=== PATIENT | female | born 1970 | race American Indian/Alaskan Native ===

== ENCOUNTER 2017-05-15 16:31 | Emergency (ER) | payer BC ==
[2017-05-15 16:41] VITALS: BP 109/54; PULSE 58; RESP 20; TEMP 98
[2017-05-15] MEDS ORDERED: HYDROcodone/APAP 10-325MG 1 EACH TAB PO ONE (17:29)
[2017-05-15] MEDS ORDERED: ORPHENADRINE 30 MG/ML 2 ML VIAL IM STA (17:29)
[2017-05-15] MEDS ORDERED: KETOROLAC 60 MG/2 ML VIAL IM STA (17:29)
--- NOTE | 2017-05-15 17:32 | ED ---
Back Pain HPI - General Chief Complaint: Back Pain/Injury Stated Complaint: Back Pain Time Seen by Provider: 05/15/17 17:00 Source: patient, RN notes reviewed, old records reviewed Limitations: no limitations - History of Present Illness Initial Comments: This is a 47 year old female with CC of lower back pain radiating down right leg. She denies any falls, or saddle anesthesia. She reports that she has had pain like this occasionally before. Patient states she has been taking motrin with little relief for pain. - Related Data Previous Rx's Medication Instructions Recorded Diazepam [Valium] 5 mg PO BID #4 tab 08/07/16 HYDROcodone/APAP 5-325MG [[place] 1 tab PO Q4HR PRN #12 tab 08/07/16 5-325] Cyclobenzaprine [Flexeril] 10 mg PO TID #15 tab 05/15/17 Dexamethasone 0.75 mg PO DAILY #12 tab 05/15/17 HYDROcodone/APAP 10-325MG [[place] 1 tab PO Q8H PRN #15 tab 05/15/17 10-325] Allergies Allergy/AdvReac Type Severity Reaction Status Date / Time codeine Allergy Unknown Verified 05/15/17 16:41 Review of Systems ROS Statement: Those systems with pertinent positive or pertinent negative responses have been documented in the HPI. ROS Other: All systems not noted in ROS Statement are negative. Constitutional: Denies: fever, chills Eyes: Denies: eye pain ENT: Denies: ear pain Respiratory: Denies: cough, dyspnea Cardiovascular: Denies: chest pain Endocrine: Reports: fatigue Gastrointestinal: Denies: abdominal pain, nausea Genitourinary: Denies: urgency Musculoskeletal: Reports: back pain Skin: Denies: rash, lesions Neurological: Denies: headache, weakness Psychiatric: Denies: anxiety, depression Hematological/Lymphatic: Denies: easy bleeding Past Medical History Past Medical History: No Reported History Additional Past Medical History / Comment(s): migraine, back pain History of Any Multi-Drug Resistant Organisms: None Reported Past Surgical History: Cholecystectomy, Hernia Repair Past Psychological History: No Psychological Hx Reported Smoking Status: Current some day smoker Past Alcohol Use History: None Reported Past Drug Use History: None Reported General Exam - General Exam Comments Initial Comments: Well appearing 47 year old female. Limitations: no limitations General appearance: alert, in no apparent distress Head exam: Present: atraumatic, normocephalic, normal inspection Eye exam: Present: normal appearance, PERRL, EOMI. Absent: scleral icterus, conjunctival injection, periorbital swelling ENT exam: Present: normal exam, mucous membranes moist Neck exam: Present: normal inspection. Absent: tenderness, meningismus, lymphadenopathy Respiratory exam: Present: normal lung sounds bilaterally. Absent: respiratory distress, wheezes, rales, rhonchi, stridor Cardiovascular Exam: Present: regular rate, normal rhythm, normal heart sounds. Absent: systolic murmur, diastolic murmur, rubs, gallop, clicks GI/Abdominal exam: Present: soft, normal bowel sounds. Absent: distended, tenderness, guarding, rebound, rigid Extremities exam: Present: normal inspection, full ROM, normal capillary refill. Absent: tenderness, pedal edema, joint swelling, calf tenderness Back exam: Present: normal inspection, tenderness (right lumbar and sciatic notch tenderness. ) Neurological exam: Present: alert, oriented X3, CN II-XII intact Psychiatric exam: Present: normal affect, normal mood Skin exam: Present: warm, dry, intact, normal color. Absent: rash Course Vital Signs 05/15/17 16:40 Temperature 98 F Pulse Rate 58 L Respiratory 20 Rate Blood Pressure 109/54 O2 Sat by Pulse 100 Oximetry Medical Decision Making - Medical Decision Making This is a 47 year old female with CC of lower back pain radiating down right leg. She denies any falls, or saddle anesthesia. She reports that she has had pain like this occasionally before. Patient states she has been taking motrin with little relief for pain. Pt given IM norflex, nad toradol. Pt has right lumbar spinal tenderness, positive straight leg test. Patient given Rx for dexamethasone, flexeril, and norco.. Discussed close follow up with PCP. Disposition Clinical Impression: Back pain with right-sided sciatica Disposition: HOME SELF-CARE Condition: Good Instructions: Acute Low Back Pain (ED) Additional Instructions: Patient advised to follow-up with a primary care physician. Take the medications as directed. Patient also needs to do heat and ice and also do massage over the area. Return to the emergency department if any alarming signs or symptoms occur. Prescriptions: Cyclobenzaprine [Flexeril] 10 mg PO TID #15 tab Dexamethasone 0.75 mg PO DAILY #12 tab HYDROcodone/APAP 10-325MG [[place] 10-325] 1 tab PO Q8H PRN #15 tab PRN Reason: Pain Referrals: None,Stated [Primary Care Provider] - 1-2 days Katia Childers MD [STAFF PHYSICIAN] - 1-2 days Time of Disposition: 17:30
--- NOTE | 2017-05-19 03:08 | CDI ---
Documentation Clarification OP Dear ANIL Coles: Please do addendum to ED report for HPI and physical exam. Thank you, Sabrina Moy [employer]pering Kil[employer] Tender If you have any question, Please contact manager science at [phone] [facility]
== END 2017-05-15 17:50 | disposition home or self-care (01) ==
LOC: EC 16:31
DX: M54.41 Lumbago with sciatica, right side (principal); F17.200 Nicotine dependence, unspecified, uncomplicated; Z88.5 Allergy status to narcotic agent
CPT/HCPCS: 99284; 96372 ×2; J2360; J1885

== ENCOUNTER 2017-11-08 17:56 | Emergency (ER) | payer BC ==
[2017-11-08 18:34] VITALS: BP 150/69; PULSE 63; RESP 18; TEMP 97
[2017-11-08] MEDS ORDERED: ORPHENADRINE 30 MG/ML 2 ML VIAL IM STA (18:50)
--- NOTE | 2017-11-08 18:51 | ED ---
Fall HPI - General Chief Complaint: Fall Stated Complaint: Fell/back pain Time Seen by Provider: 11/08/17 18:30 Source: patient, RN notes reviewed, old records reviewed Mode of arrival: ambulatory - History of Present Illness Initial Comments: 47-year-old female presents today chief complaint of lower back pain. She reports that she slipped and fell. Patient states that she has pain radiating down her leg. She states that she is here for her daughter's . She reports she has been induced. She reports she was running with her bags and fell. She states that she's had no saddle anesthesias. Denies any other symptoms at this time.Patient denies any recent fever, chills, shortness of breath, chest pain, back pain, abdominal pain, nausea vomiting, numbness or tingling, dysuria or hematuria, constipation or diarrhea, headaches or visual changes, or any other current symptoms - Related Data Previous Rx's Medication Instructions Recorded Diazepam [Valium] 5 mg PO BID #4 tab 08/07/16 HYDROcodone/APAP 5-325MG [[place] 1 tab PO Q4HR PRN #12 tab 08/07/16 5-325] Cyclobenzaprine [Flexeril] 10 mg PO TID #15 tab 05/15/17 Dexamethasone 0.75 mg PO DAILY #12 tab 05/15/17 HYDROcodone/APAP 10-325MG [[place] 1 tab PO Q8H PRN #15 tab 05/15/17 10-325] Cyclobenzaprine [Flexeril] 10 mg PO TID #12 tab 11/08/17 Dexamethasone 0.75 mg PO DAILY #12 tab 11/08/17 HYDROcodone/APAP 5-325MG [[place] 1 - 2 tab PO Q6HR PRN #15 tab 11/08/17 5-325] Allergies Allergy/AdvReac Type Severity Reaction Status Date / Time codeine Allergy Unknown Verified 11/08/17 18:34 Review of Systems ROS Statement: Those systems with pertinent positive or pertinent negative responses have been documented in the HPI. ROS Other: All systems not noted in ROS Statement are negative. Past Medical History Past Medical History: No Reported History Additional Past Medical History / Comment(s): migraine, back pain History of Any Multi-Drug Resistant Organisms: None Reported Past Surgical History: Cholecystectomy, Hernia Repair Past Psychological History: No Psychological Hx Reported Smoking Status: Current some day smoker Past Alcohol Use History: None Reported Past Drug Use History: None Reported General Exam - General Exam Comments Initial Comments: 47-year-old female. No distress. Limitations: no limitations General appearance: alert, in no apparent distress Head exam: Present: atraumatic, normocephalic, normal inspection Eye exam: Present: normal appearance, PERRL, EOMI. Absent: scleral icterus, conjunctival injection, periorbital swelling ENT exam: Present: normal exam, mucous membranes moist Neck exam: Present: normal inspection. Absent: tenderness, meningismus, lymphadenopathy Respiratory exam: Present: normal lung sounds bilaterally. Absent: respiratory distress, wheezes, rales, rhonchi, stridor Cardiovascular Exam: Present: regular rate, normal rhythm, normal heart sounds. Absent: systolic murmur, diastolic murmur, rubs, gallop, clicks GI/Abdominal exam: Present: soft, normal bowel sounds. Absent: distended, tenderness, guarding, rebound, rigid Extremities exam: Present: normal inspection, full ROM, normal capillary refill. Absent: tenderness, pedal edema, joint swelling, calf tenderness Back exam: Present: normal inspection, vertebral tenderness (Lumbar vertebral tenderness.) Neurological exam: Present: alert, oriented X3, CN II-XII intact Psychiatric exam: Present: normal affect, normal mood Course Vital Signs 11/08/17 18:32 Temperature 97.0 F L Pulse Rate 63 Respiratory 18 Rate Blood Pressure 150/69 O2 Sat by Pulse 100 Oximetry Medical Decision Making - Medical Decision Making 47-year-old female presents today chief complaint of lower back pain. She reports that she slipped and fell. Patient states that she has pain radiating down her leg. She states that she is here for her daughter's . She reports she has been induced. She reports she was running with her bags and fell. She states that she's had no saddle anesthesias. Patient given x-rays of the lumbar spine and pelvis. There are negative for any acute or maladies. There is evidence of some degenerative disc disease noted. Patient informed of these results. Will be discharged with anti-inflammatory medication. Discussed following up with PCP. Return parameters were discussed. - Radiology Data Radiology results: report reviewed Pelvis x-ray was reviewed and negative for any acute process. Lumbar spine x- rays negative for any significant disease. Disposition Clinical Impression: Fall, Back pain Disposition: HOME SELF-CARE Condition: Good Instructions: Low Back Strain (ED) Additional Instructions: Patient has a follow-up with primary care physician. Take medications as prescribed. Return to the emergency department if any alarming signs or symptoms occur. Prescriptions: Cyclobenzaprine [Flexeril] 10 mg PO TID #12 tab Dexamethasone 0.75 mg PO DAILY #12 tab HYDROcodone/APAP 5-325MG [[place] 5-325] 1 - 2 tab PO Q6HR PRN #15 tab PRN Reason: Pain Referrals: Nahomi Pantoja MD [Primary Care Provider] - 1-2 days Time of Disposition: 19:20
--- NOTE | 2017-11-08 19:12 | XR ---
EXAMINATION TYPE: XR pelvis AP view DATE OF EXAM: 11/08/2017 CLINICAL HISTORY: Fall injury with pain. TECHNIQUE: A single AP view of the pelvis is obtained. COMPARISON: Right hip x-ray September 24, 2014 FINDINGS: There is no acute fracture/dislocation evident in the pelvis. The hip and sacroiliac join ts appear symmetric and unremarkable. Scattered pelvic phleboliths are present. IMPRESSION: There is no acute fracture or dislocation in the pelvis.
--- NOTE | 2017-11-08 19:15 | XR ---
EXAMINATION TYPE: XR lumbar spine 2 or 3V DATE OF EXAM: 11/08/2017 CLINICAL HISTORY: Back pain after fall injury. TECHNIQUE: Frontal and lateral images of the lumbar spine are obtained. COMPARISON: Prior lumbar spine x-ray September 24, 2014 FINDINGS: There are 5 lumbar type vertebral bodies identified. The lumbar spine redemonstrates levo convex scoliosis centered at L3 level without evidence of acute fracture or dislocation. Spine is str aightened on lateral images. Vertebral body heights are within normal limits. There is moderate disc space narrowing and endplate sclerosis with mild to moderate anterior spurring L3-L4 level redemonstr ated. There is mild disc space narrowing L4-L5 level redemonstrated. There is moderate disc space don rowing with vacuum disc phenomenon L5-S1 level redemonstrated. Cholecystectomy clips in the overlying soft tissue are again seen. IMPRESSION: No acute fracture or dislocation is seen in the lumbar spine. No significant change from prior.
== END 2017-11-08 19:28 | disposition home or self-care (01) ==
LOC: EC 17:56
DX: M54.5 Low back pain (principal); F17.200 Nicotine dependence, unspecified, uncomplicated; Z88.5 Allergy status to narcotic agent; W01.0XXA Fall on same level from slipping, tripping and stumbling without subsequent striking against object, initial encounter; Y92.59 Other trade areas as the place of occurrence of the external cause; Y93.02 Activity, running
CPT/HCPCS: 72100; 72170; 99284; 96372; J2360

== ENCOUNTER → 2019-06-14 | Outpatient (CLI) | payer BC ==
--- NOTE | 2019-06-14 12:22 | MM ---
Reason for exam: screening (asymptomatic). Baseline mammogram. History: Patient is postmenopausal. Physical Findings: Nurse did not find any significant physical abnormalities on exam. MG Screening Mammo w CAD Bilateral CC and MLO view(s) were taken. There are scattered fibroglandular densities. No suspicious abnormality. These results were verbally communicated with the patient and result sheet given to the patient on 06/14/19. ASSESSMENT: Negative, BI-RAD 1 RECOMMENDATION: Routine screening mammogram of both breasts in 1 year.
== END | disposition home or self-care (01) ==
LOC: RADMAMWWP 10:53
PROVIDERS: ATTEND Family Medicine
DX: Z12.31 Encounter for screening mammogram for malignant neoplasm of breast (principal)
CPT/HCPCS: 77067

== ENCOUNTER 2021-09-22 11:01 | Inpatient (IN) | payer BC ==
[2021-09-22] MEDS ORDERED: DEXAMETHASONE SOD PHOSPHATE 10 MG/ML 1 ML VIAL IV STA (12:18)
[2021-09-22] MEDS ORDERED: ACETAMINOPHEN TAB 500 MG TAB PO STA (12:34)
--- NOTE | 2021-09-22 12:35 | ED ---
General Adult HPI - General Chief complaint: Shortness of Breath Stated complaint: SOB/Dizziness Time Seen by Provider: 09/22/21 12:01 Source: patient Mode of arrival: wheelchair - History of Present Illness Initial comments: Dictation was produced using [employer] dictation software. please excuse any grammatical, word or spelling errors. Chief Complaint: Patient is a 51-year-old female she has past medical history of depression presents emergency department for worsening symptoms of COVID-19 History of Present Illness: Patient is a 51-year-old female she denies any significant comorbidities. She states she's been symptomatically Covid since Tuesday. Over the last 4 days she's had worsening symptoms of fever, cough, myalgias, shortness of breath and dizziness. Patient does not know how she contracted it. She tested positive recently. She denies any chest pain The ROS documented in this emergency department record has been reviewed and confirmed by me. Those systems with pertinent positive or negative responses have been documented in the HPI. All other systems are other negative and/or noncontributory. PHYSICAL EXAM: General Impression: Alert and oriented x3, malaise, feels warm HEENT: Normocephalic atraumatic, extra-ocular movements intact, pupils equal and reactive to light bilaterally, mucous membranes moist. Cardiovascular: Heart regular rate and rhythm Chest: Able to complete full sentences, no retractions, no tachypnea Abdomen: abdomen soft, non-tender, non-distended, no organomegaly Musculoskeletal: Pulses present and equal in all extremities, no peripheral edema Motor: no focal deficits noted Neurological: CN II-XII grossly intact, no focal motor or sensory deficits noted Skin: Intact with no visualized rashes Psych: Normal affect and mood ED course: 51-year-old female presents emergency Department with Covid symptoms. She's been symptomatic for the last 4 days. Vital signs upon arrival shows 85% on room air, rest of vital signs within acceptable limits. Patient placed on 4 L nasal cannula. EKG interpretation: Ventricular rate 86, sinus rhythm,. Interval 144, QRS 80, QTc 457. No MT prolongation, no QTC prolongation, no ST or T-wave changes noted. Overall, this EKG is unremarkable Chest x-ray shows ARDS. Laboratory evaluation shows white count 12.5, CBC unremarkable. Coag panel is negative. D-dimer slightly elevated at 0.78. Metabolic panel is negative. CT angio of the chest ordered for elevated d-dimer CT angios the chest shows no pulmonary embolism. There is atypical pneumonia. Given the patient has elevated white count there is concern for superimposed bacterial infection. Patient given azithromycin and ceftriaxone. Patient be admitted with pulmonary consult. - Related Data Home Medications Medication Instructions Recorded Confirmed Acetaminophen Tab [Tylenol Tab] 1,000 mg PO BID 09/22/21 09/22/21 Baclofen [Lioresal] 10 mg PO TID PRN 09/22/21 09/22/21 Diclofenac Sodium [Voltaren] 75 mg PO BID 09/22/21 09/22/21 Gabapentin [Neurontin] 300 mg PO BID 09/22/21 09/22/21 Meloxicam 7.5 mg PO DAILY 09/22/21 09/22/21 Sertraline [Zoloft] 100 mg PO DAILY 09/22/21 09/22/21 Allergies Allergy/AdvReac Type Severity Reaction Status Date / Time codeine Allergy Unknown Verified 09/22/21 13:25 Review of Systems ROS Statement: Those systems with pertinent positive or pertinent negative responses have been documented in the HPI. ROS Other: All systems not noted in ROS Statement are negative. Past Medical History Past Medical History: No Reported History Additional Past Medical History / Comment(s): migraine, back pain History of Any Multi-Drug Resistant Organisms: None Reported Past Surgical History: Cholecystectomy, Hernia Repair Past Psychological History: No Psychological Hx Reported Smoking Status: Never smoker Past Alcohol Use History: None Reported Past Drug Use History: None Reported Course Vital Signs 09/22/21 09/22/21 09/22/21 11:20 13:20 13:26 Temperature 98.9 F 98.2 F Pulse Rate 95 90 Respiratory 22 24 Rate Blood Pressure 100/69 123/83 O2 Sat by Pulse 85 L 90 L 91 L Oximetry 09/22/21 09/22/21 14:31 15:00 Temperature Pulse Rate 68 Respiratory 22 18 Rate Blood Pressure 117/78 O2 Sat by Pulse 93 L Oximetry Medical Decision Making - Lab Data Result diagrams: 09/22/21 13:11 09/22/21 13:11 Lab Results 09/22/21 09/22/21 09/22/21 Range/Units 13:11 13:11 13:11 WBC 12.5 H (3.8-10.6) k/uL RBC 4.63 (3.80-5.40) m/uL Hgb 13.8 (11.4-16.0) gm/dL Hct 42.3 (34.0-46.0) % MCV 91.4 (80.0-100.0) fL MCH 29.8 (25.0-35.0) pg MCHC 32.6 (31.0-37.0) g/dL RDW 12.3 (11.5-15.5) % Plt Count 295 (150-450) k/uL MPV 9.1 Neutrophils % 91 % Lymphocytes % 6 % Monocytes % 3 % Eosinophils % 0 % Basophils % 0 % Neutrophils # 11.3 H (1.3-7.7) k/uL Lymphocytes # 0.7 L (1.0-4.8) k/uL Monocytes # 0.4 (0-1.0) k/uL Eosinophils # 0.0 (0-0.7) k/uL Basophils # 0.0 (0-0.2) k/uL PT 10.7 (9.0-12.0) sec INR 1.0 (<1.2) APTT 26.4 (22.0-30.0) sec D-Dimer 0.78 H (<0.60) mg/L FEU Sodium 138 (137-145) mmol/L Potassium 3.8 (3.5-5.1) mmol/L Chloride 102 (98-107) mmol/L Carbon Dioxide 24 (22-30) mmol/L Anion Gap 12 mmol/L BUN 15 (7-17) mg/dL Creatinine 0.50 L (0.52-1.04) mg/dL Est GFR (CKD-EPI)AfAm >90 (>60 ml/min/1.73 sqM) Est GFR (CKD-EPI)NonAf >90 (>60 ml/min/1.73 sqM) Glucose 107 H (74-99) mg/dL Calcium 8.8 (8.4-10.2) mg/dL Total Bilirubin 0.6 (0.2-1.3) mg/dL AST 80 H (14-36) U/L ALT 70 H (4-34) U/L Alkaline Phosphatase 111 (38-126) U/L Troponin I (0.000-0.034) ng/mL NT-Pro-B Natriuret Pep pg/mL Total Protein 6.9 (6.3-8.2) g/dL Albumin 3.5 (3.5-5.0) g/dL 09/22/21 09/22/21 Range/Units 13:11 13:11 WBC (3.8-10.6) k/uL RBC (3.80-5.40) m/uL Hgb (11.4-16.0) gm/dL Hct (34.0-46.0) % MCV (80.0-100.0) fL MCH (25.0-35.0) pg MCHC (31.0-37.0) g/dL RDW (11.5-15.5) % Plt Count (150-450) k/uL MPV Neutrophils % % Lymphocytes % % Monocytes % % Eosinophils % % Basophils % % Neutrophils # (1.3-7.7) k/uL Lymphocytes # (1.0-4.8) k/uL Monocytes # (0-1.0) k/uL Eosinophils # (0-0.7) k/uL Basophils # (0-0.2) k/uL PT (9.0-12.0) sec INR (<1.2) APTT (22.0-30.0) sec D-Dimer (<0.60) mg/L FEU Sodium (137-145) mmol/L Potassium (3.5-5.1) mmol/L Chloride (98-107) mmol/L Carbon Dioxide (22-30) mmol/L Anion Gap mmol/L BUN (7-17) mg/dL Creatinine (0.52-1.04) mg/dL Est GFR (CKD-EPI)AfAm (>60 ml/min/1.73 sqM) Est GFR (CKD-EPI)NonAf (>60 ml/min/1.73 sqM) Glucose (74-99) mg/dL Calcium (8.4-10.2) mg/dL Total Bilirubin (0.2-1.3) mg/dL AST (14-36) U/L ALT (4-34) U/L Alkaline Phosphatase (38-126) U/L Troponin I <0.012 (0.000-0.034) ng/mL NT-Pro-B Natriuret Pep 127 pg/mL Total Protein (6.3-8.2) g/dL Albumin (3.5-5.0) g/dL Critical Care Time Critical Care Time: Yes Total Critical Care Time: 33 Disposition Clinical Impression: COVID-19 Disposition: ADMITTED IP TO THIS [facility] Condition: Critical Referrals: Lin Tejeda MD [Primary Care Provider] - 1-2 days
--- NOTE | 2021-09-22 13:05 | XR ---
EXAMINATION TYPE: XR chest 1V portable DATE OF EXAM: 09/22/2021 COMPARISON: 03/09/2011 HISTORY: Cough TECHNIQUE: Single frontal view of the chest is obtained. FINDINGS: There is diffuse mixed alveolar and interstitial airspace disease with no sizable pleural effusion or pneumothorax. Heart size normal. IMPRESSION: Diffuse widespread airspace disease correlate for diffuse pneumonia or ARDS.
[2021-09-22 13:47] LABS: ALT 70 U/L (4-34); AST 80 U/L (14-36); African American GFR (CKD) >90 (>60 ml/min/1.73 sqM); Albumin 3.5 g/dL (3.5-5.0); Alkaline Phosphatase 111 U/L (38-126); Anion Gap 12 mmol/L; Blood Urea Nitrogen 15 mg/dL (7-17); Calcium 8.8 mg/dL (8.4-10.2); Carbon Dioxide 24 mmol/L (22-30); Chloride 102 mmol/L (98-107); Glucose 107 mg/dL (74-99); Non-African American GFR(CKD) >90 (>60 ml/min/1.73 sqM); Potassium 3.8 mmol/L (3.5-5.1); Sodium 138 mmol/L (137-145); Total Bilirubin 0.6 mg/dL (0.2-1.3); Total Protein 6.9 g/dL (6.3-8.2)
[2021-09-22 13:53] LABS: Basophils % (A) 0 %; Eosinophils % (A) 0 %; HCT 42.3 % (34.0-46.0); HGB 13.8 gm/dL (11.4-16.0); Lymphocytes # (A) 0.7 k/uL (1.0-4.8); Lymphocytes % (A) 6 %; MCH 29.8 pg (25.0-35.0); MCHC 32.6 g/dL (31.0-37.0); MCV 91.4 fL (80.0-100.0); Mean Platelet Volume 9.1; Monocytes # (A) 0.4 k/uL (0-1.0); Monocytes % (A) 3 %; Neutrophils # (A) 11.3 k/uL (1.3-7.7); Neutrophils % (A) 91 %; Platelet Count 295 k/uL (150-450); RBC 4.63 m/uL (3.80-5.40); RDW 12.3 % (11.5-15.5); WBC 12.5 k/uL (3.8-10.6)
[2021-09-22 13:57] LABS: Partial Thromboplastin Time 26.4 sec (22.0-30.0); Prothrombin Time 10.7 sec (9.0-12.0)
[2021-09-22] MEDS ORDERED: NALOXONE 0.4 MG/ML 1 ML VIAL IV PRN (14:39)
[2021-09-22] MEDS ORDERED: ONDANSETRON 4 MG/2 ML VIAL IVP PRN (14:39)
[2021-09-22] MEDS ORDERED: SODIUM CHLORIDE 0.9% 1,000 ML IV SCH (14:45)
--- NOTE | 2021-09-22 15:04 | CT ---
CT CHEST FOR PULMONARY EMBOLISM. EXAMINATION TYPE: CT angio chest DATE OF EXAM: 09/22/2021 INDICATION: COVID CT DLP: 404.5 mGycm, Automated exposure control for dose reduction was used. CONTRAST: Patient injected with 100, wasted 36 ml mL of Isovue 370. COMPARISON: None TECHNIQUE: CT of the chest is performed on a spiral scan at 2 mm thick sections. Study is performed with intravenous contrast timed for evaluation for pulmonary embolism. This will limit additional po rtions of the evaluation. 3-D MIP images reconstructed by the technologist are reviewed on the compu ter in the coronal and sagittal planes. FINDINGS: No persistent filling defects are evident to suggest an acute pulmonary embolism. No mediastinal or hilar adenopathy enlarged by CT criteria is evident. The ascending aorta diameter at the level of the main pulmonary artery is 2.8 cm. The main pulmonary artery diameter at the bifur cation is 2.7 cm. There are diffuse groundglass opacities with patchy infiltrates throughout the bilateral lung carmona. Findings the suggestive for, although not diagnostic of, Covid pneumonia. Limited CT section through the upper abdomen are unremarkable. IMPRESSIONS: 1. No acute pulmonary embolism. 2. Atypical pneumonia.
[2021-09-22] MEDS ORDERED: cefTRIAXone IN SWFI 1,000 MG/10 ML SYRINGE IVP STA (15:14)
[2021-09-22] MEDS ORDERED: AZITHROMYCIN 500 MG in SODIUM CHLORIDE 0.9% 250 ML IVPB STA (15:14)
[2021-09-22] MEDS: ENOXAPARIN 40 MG/0.4 ML SYRINGE SQ SCH (15:57)
[2021-09-22] MEDS: ACETAMINOPHEN TAB 325 MG TAB PO PRN (19:55)
[2021-09-23] MEDS: ENOXAPARIN 40 MG/0.4 ML SYRINGE SQ SCH (09:51)
[2021-09-23] MEDS: DEXAMETHASONE SOD PHOSPHATE 10 MG/ML 1 ML VIAL IVP SCH (09:51)
[2021-09-23] MEDS: SERTRALINE 100 MG TAB PO SCH (09:51)
[2021-09-23] MEDS: MELOXICAM 7.5 MG TAB PO SCH (09:51)
[2021-09-23] MEDS: GABAPENTIN 300 MG CAP PO SCH ×2 (09:51→21:30)
--- NOTE | 2021-09-23 10:06 | P.CNPUL ---
History of Present Illness Consult date: 09/23/21 Reason for consult: dyspnea, cough, hypoxemia, abnormal CXR/CT Chief complaint: Dyspnea, cough History of present illness: This is a 51-year-old female patient without significant medical history who came into the emergency department for evaluation of worsening dyspnea, cough, and patient was diagnosed with COVID-19 at the health department on 09/21/2021. Patient developed symptoms since the day after Thanksgiving, and at this point she is 12 days out from a symptom onset. Initially she had fever and chills, which progressed to worsening cough, and shortness of breath. She believes she became infected at work, where COVID infection was going around. 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 Not get any monoclonal antibodies, did not get any outpatient treatment, chest x-ray in emergency department shows diffuse widespread airspace disease consistent with COVID-19 pneumonia, ARDS. Admission labs showed white blood cell count of 12.5, hemoglobin at 13.8, platelet count of 295, d-dimer of 0.78, INR of 1, electrolytes were within normal limits, B1 was 15 creatinine was 0.50, GFR is greater than 90, AST was elevated at 80, ALT was 70, troponin was less than 0.012, proBNP was 127. Patient denies any history of chronic lung disease, she is a nonsmoker, no history of hypertension or diabetes. Generally she is a healthy adult. CT angiogram of the chest showed no acute pulmonary embolism, and groundglass opacities, diffuse with patchy infiltrates throughout the bi lateral lung carmona. Patient was outside the window for Remdesivir, she was started on Decadron, prophylactic Lovenox, and COVID-19 vitamins. Review of Systems All systems: negative Constitutional: Reports fatigue, Reports fever, Reports weakness, Denies chills Eyes: denies blurred vision, denies pain Ears, nose, mouth and throat: Denies headache, Denies sore throat Cardiovascular: Denies chest pain, Denies shortness of breath Respiratory: Reports cough, Reports dyspnea Gastrointestinal: Reports diarrhea, Reports loss of appetite, Denies abdominal pain, Denies nausea, Denies vomiting Genitourinary: Denies dysuria, Denies hematuria Musculoskeletal: Denies myalgias Integumentary: Denies pruritus, Denies rash Neurological: Denies numbness, Denies weakness Psychiatric: Denies anxiety, Denies depression Endocrine: Denies fatigue, Denies weight change Past Medical History Past Medical History: No Reported History Additional Past Medical History / Comment(s): migraine, back pain History of Any Multi-Drug Resistant Organisms: None Reported Past Surgical History: Cholecystectomy, Hernia Repair Past Anesthesia/Blood Transfusion Reactions: No Reported Reaction Past Psychological History: No Psychological Hx Reported Smoking Status: Never smoker Past Alcohol Use History: None Reported Past Drug Use History: None Reported Medications and Allergies Home Medications Medication Instructions Recorded Confirmed Type Acetaminophen Tab [Tylenol Tab] 1,000 mg PO BID 09/22/21 09/22/21 History Baclofen [Lioresal] 10 mg PO TID PRN 09/22/21 09/22/21 History Diclofenac Sodium [Voltaren] 75 mg PO BID 09/22/21 09/22/21 History Gabapentin [Neurontin] 300 mg PO BID 09/22/21 09/22/21 History Meloxicam 7.5 mg PO DAILY 09/22/21 09/22/21 History Sertraline [Zoloft] 100 mg PO DAILY 09/22/21 09/22/21 History Allergies Allergy/AdvReac Type Severity Reaction Status Date / Time codeine Allergy Unknown Verified 09/22/21 13:25 Physical Exam Vitals: Vital Signs Temp Pulse Pulse Resp BP BP Pulse Ox 09/23/21 06:00 98.8 F 73 19 117/78 91 L 09/23/21 04:15 92 L 09/23/21 02:00 98.2 F 65 21 124/83 96 09/22/21 22:31 98.5 F 82 19 113/76 92 L 09/22/21 20:00 22 09/22/21 18:46 98.2 F 81 22 116/79 93 L 09/22/21 16:00 98.0 F 79 22 115/78 93 L 09/22/21 15:00 82 24 117/78 94 L 09/22/21 14:31 22 09/22/21 13:26 91 L 09/22/21 13:20 98.2 F 90 24 123/83 90 L 09/22/21 11:20 98.9 F 95 22 100/69 85 L Intake and Output 09/22/21 09/23/21 09/23/21 22:59 06:59 14:59 Intake Total 1100 Balance 1100 Intake: Oral 1100 Other: # Voids 2 1 Weight 90.718 kg GENERAL EXAM: Alert, pleasant, 61-year-old female, frequent cough, currently on 8 L of oxygen, mildly short of breath with conversation HEAD: Normocephalic/atraumatic. EYES: Normal reaction of pupils, equal size. Conjunctiva pink, sclera white. NOSE: Clear with pink turbinates. THROAT: No erythema or exudates. NECK: No masses, no JVD, no thyroid enlargement, no adenopathy. CHEST: No chest wall deformity. Symmetrical expansion. LUNGS: Equal air entry with diffuse crackles CVS: Regular rate and rhythm, normal S1 and S2, no gallops, no murmurs, no rubs ABDOMEN: Soft, nontender. No hepatosplenomegaly, normal bowel sounds, no guarding or rigidity. EXTREMITIES: No clubbing, no edema, no cyanosis, 2+ pulses and upper and lower extremities. MUSCULOSKELETAL: Muscle strength and tone normal. SPINE: No scoliosis or deformity SKIN: No rashes, multiple tattoos on arms, legs CENTRAL NERVOUS SYSTEM: Alert and oriented -3. No focal deficits, tone is normal in all 4 extremities. PSYCHIATRIC: Alert and oriented -3. Appropriate affect. Intact judgment and insight. Results - Laboratory Findings CBC and BMP: 09/22/21 13:11 09/22/21 13:11 PT/INR, D-dimer PT 10.7 sec (9.0-12.0) 09/22/21 13:11 INR 1.0 (<1.2) 09/22/21 13:11 D-Dimer 0.78 mg/L FEU (<0.60) H 09/22/21 13:11 Abnormal lab findings: Abnormal Labs 09/22/21 09/22/21 09/22/21 13:11 13:11 13:11 WBC 12.5 H Neutrophils # 11.3 H Lymphocytes # 0.7 L D-Dimer 0.78 H Creatinine 0.50 L Glucose 107 H AST 80 H ALT 70 H - Diagnostic Findings Chest x-ray: report reviewed, image reviewed CT scan - chest: report reviewed, image reviewed Assessment and Plan Plan: Assessment: #1. Acute hypoxic respiratory failure related to acute COVID-19 pneumonia, patient presented to the emergency department on 09/22/2021 with 12 day history of symptoms, and patient is outside the window for Remdesivir, she is a nonvaccinated adult, patient's oxygen needs quickly progressed from 4 L to 8 L in 24 hours. She has been started on Decadron, prophylactic Lovenox and multivitamins. #2. Mildly elevated d-dimer of 0.78, with no CTA evidence of pulmonary embolism #3. Shortness of breath, cough, diarrhea related to acute COVID-19 infection #4. Migraine headaches #5. Nonsmoker #6. Chronic back pain Plan: Patient is outside the window for Remdesivir FiO2 has increased in the last 24 hours and is up to 8 L on today's exam We'll continue Decadron 6 mg daily, continue prophylactic Lovenox We'll obtain inflammatory markers Continue COVID-19 vitamins Overall prognosis is guarded We'll continue monitoring for worsening dyspnea and hypoxia I performed a history & physical examination of the patient and discussed their management with my nurse practitioner, Carmelina Spear. I reviewed the nurse practitioner's note and agree with the documented findings and plan of care. L babar sounds are positive for diffuse crackles throughout the lung carmona. The findings and the impression was discussed with the patient. I attest to the documentation by the nurse practitioner. Time with Patient: Greater than 30
[2021-09-23] MEDS: ASCORBIC ACID 500 MG TAB PO SCH (17:54)
[2021-09-23] MEDS: PANTOPRAZOLE 40 MG/10 ML VIAL IVP SCH (17:54)
[2021-09-23] MEDS: ZINC SULFATE 220 MG CAP PO SCH (17:54)
[2021-09-23] MEDS: CHOLECALCIFEROL 125 MCG (5000 IU) TABLET PO SCH (17:54)
[2021-09-23] MEDS: ACETAMINOPHEN TAB 325 MG TAB PO PRN (19:18)
[2021-09-23] MEDS: BACLOFEN 10 MG TAB PO PRN (21:30)
--- NOTE | 2021-09-23 23:53 | P.HPIM ---
History of Present Illness H&P Date: 09/23/21 Chief Complaint: shortness of breath Hillary Greenfield is a 51 yo unvaccinated female with no PMH who presented to the ED with worsening cough and dyspnea over the past 2-3 weeks. She complains of initally fever and chills and then progressed to respiratory symptoms. She went to the health department earlier this week and was diagnosed with COVID. She did not see her PCP or get any outpatient treatment. On presentation pt hypoxic, WBC 12.5k, Cr 0.5, BNP 127, trop negative. She is a nonsmoker. CTA no PE, diffuse infiltrates throughout. Review of Systems All systems: negative Constitutional: Reports malaise, Reports weakness, Denies chills, Denies fever Eyes: denies blurred vision, denies pain Ears, nose, mouth and throat: Denies headache, Denies sore throat Cardiovascular: Denies chest pain, Denies shortness of breath Respiratory: Reports cough, Reports dyspnea Gastrointestinal: Denies abdominal pain, Denies diarrhea, Denies nausea, Denies vomiting Genitourinary: Denies dysuria, Denies hematuria Musculoskeletal: Denies myalgias Integumentary: Denies pruritus, Denies rash Neurological: Denies numbness, Denies weakness Psychiatric: Denies anxiety, Denies depression Endocrine: Denies fatigue, Denies weight change Past Medical History Past Medical History: No Reported History Additional Past Medical History / Comment(s): migraine, back pain History of Any Multi-Drug Resistant Organisms: None Reported Past Surgical History: Cholecystectomy, Hernia Repair Past Anesthesia/Blood Transfusion Reactions: No Reported Reaction Past Psychological History: No Psychological Hx Reported Smoking Status: Never smoker Past Alcohol Use History: None Reported Past Drug Use History: None Reported Medications and Allergies Home Medications Medication Instructions Recorded Confirmed Type Acetaminophen Tab [Tylenol Tab] 1,000 mg PO BID 09/22/21 09/22/21 History Baclofen [Lioresal] 10 mg PO TID PRN 09/22/21 09/22/21 History Diclofenac Sodium [Voltaren] 75 mg PO BID 09/22/21 09/22/21 History Gabapentin [Neurontin] 300 mg PO BID 09/22/21 09/22/21 History Meloxicam 7.5 mg PO DAILY 09/22/21 09/22/21 History Sertraline [Zoloft] 100 mg PO DAILY 09/22/21 09/22/21 History Allergies Allergy/AdvReac Type Severity Reaction Status Date / Time codeine Allergy Unknown Verified 09/22/21 13:25 Physical Exam Vitals: Vital Signs Temp Pulse Resp BP Pulse Ox 09/23/21 22:33 97.9 F 66 17 115/68 97 09/23/21 19:47 75 18 09/23/21 17:44 98.1 F 75 18 120/79 91 L 09/23/21 13:47 98.1 F 73 20 115/77 93 L 09/23/21 10:16 17 90 L 09/23/21 10:00 98.3 F 87 17 121/79 80 L 09/23/21 08:00 15 09/23/21 06:00 98.8 F 73 19 117/78 91 L 09/23/21 04:15 92 L 09/23/21 02:00 98.2 F 65 21 124/83 96 Intake and Output 09/23/21 09/23/21 09/24/21 14:59 22:59 06:59 Intake Total 680 1160 Balance 680 1160 Intake: Intake, IV Titration 0 Amount Sodium Chloride 0.9% 1, 0 000 ml @ 20 mls/hr IV . Q24H RIVER Rx#:[id number] Oral 680 1160 Other: # Voids 2 2 General: well nourished, well developed, NAD. Vitals reviewed Eyes: PERRL, EOMI, conjunctiva normal HENT: normocephalic, mucus membranes moist Neck: supple, no JVD Lungs: on supplemental O2, crackles at bases CV: Regular rate and rhythm, no murmur. Peripheral pulses 2+ Abdomen: soft, nondistended, no organomegaly Lymph: no cervical or axillary LAD Skin: warm and dry. Neuro: A&Ox3, normal mood and affect Results CBC & Chem 7: 09/22/21 13:11 09/22/21 13:11 Thrombosis Risk Factor Assmnt - Choose All That Apply Any of the Below Risk Factors Present?: No Assessment and Plan Plan: 1. Acute hypoxic respiratory failure secondary to COVID pneumonia. Start decadron, lovenox, COVID vitamins. Pulmonary consult. Supplemental O2 as required
[2021-09-24] MEDS: DEXAMETHASONE SOD PHOSPHATE 10 MG/ML 1 ML VIAL IVP SCH (08:20)
[2021-09-24] MEDS: PANTOPRAZOLE 40 MG/10 ML VIAL IVP SCH (08:20)
[2021-09-24] MEDS: MELOXICAM 7.5 MG TAB PO SCH (08:20)
[2021-09-24] MEDS: CHOLECALCIFEROL 125 MCG (5000 IU) TABLET PO SCH (08:21)
[2021-09-24] MEDS: GABAPENTIN 300 MG CAP PO SCH ×2 (08:21→20:09)
[2021-09-24] MEDS: ENOXAPARIN 40 MG/0.4 ML SYRINGE SQ SCH (08:21)
[2021-09-24] MEDS: ZINC SULFATE 220 MG CAP PO SCH (08:21)
[2021-09-24] MEDS: ASCORBIC ACID 500 MG TAB PO SCH (08:21)
[2021-09-24] MEDS: SERTRALINE 100 MG TAB PO SCH (08:21)
[2021-09-24] MEDS ORDERED: guaiFENesin-Coden 100-10MG/5ML 10 ML CUP PO PRN (10:03)
--- NOTE | 2021-09-24 12:44 | P.PN ---
Subjective Progress Note Date: 09/24/21 Hillary Greenfield is a 51 yo unvaccinated female with no PMH who presented to the ED with worsening cough and dyspnea over the past 2-3 weeks. She complains of initally fever and chills and then progressed to respiratory symptoms. She went to the health department earlier this week and was diagnosed with COVID. She did not see her PCP or get any outpatient treatment. On presentation pt hypoxic, WBC 12.5k, Cr 0.5, BNP 127, trop negative. She is a nonsmoker. CTA no PE, diffuse infiltrates throughout. 09/24/2021 maintaining O2 sats in the 90s on 10 L high flow nasal cannula. Complains of cough. Afebrile. Objective - Vital Signs Vital signs: Vital Signs Temp 98.4 F 09/24/21 09:45 Pulse 68 09/24/21 09:45 Resp 17 09/24/21 09:45 BP 122/77 09/24/21 09:45 Pulse Ox 94 L 09/24/21 09:45 Intake & Output 09/23/21 09/24/21 09/24/21 18:59 06:59 18:59 Intake Total 680 1160 Balance 680 1160 Intake: Intake, IV Titration 0 Amount Sodium Chloride 0.9% 1, 0 000 ml @ 20 mls/hr IV . Q24H RIVER Rx#:[id number] Oral 680 1160 Other: # Voids 2 2 - Exam General: Alert and oriented 3, lying in bed, NAD. Vitals reviewed Eyes: PERRL, EOMI, conjunctiva normal HENT: normocephalic, mucus membranes moist Neck: supple, no JVD Lungs: on supplemental O2, crackles at bases CV: Regular rate and rhythm, no murmur. Peripheral pulses 2+ Abdomen: soft, nondistended, no organomegaly, positive bowel sounds Skin: warm and dry. Neuro: No focal deficits - Labs CBC & Chem 7: 09/22/21 13:11 09/22/21 13:11 Assessment and Plan Assessment: 1. Acute hypoxic respiratory failure secondary to COVID pneumonia. Start decadron, lovenox, COVID vitamins. Pulmonary consult. Supplemental O2 as required 2. Chronic back pain Plan: Continue current medication regime ,monitoring and symptomatic treatment. Robitussin cough syrup ordered .Maintain Covid cocktail, supplemental O2. Prognosis guarded given multiple complex medical issues. The impression and plan of care has been dictated as directed. : I performed a history and examination of this patient, discussed the same with the dictator. I agree with the dictator's note ,documented as a scribe. Any additional findings or plans will be noted.
[2021-09-24] MEDS: guaiFENesin SYRUP 100MG/5ML 200 MG/10 ML CUP PO PRN ×2 (12:50→20:09)
--- NOTE | 2021-09-24 14:35 | P.PN ---
Subjective Progress Note Date: 09/24/21 Principal diagnosis: Dyspnea, hypoxia, COVID-19 This is a 51-year-old female patient without significant medical history who came into the emergency department for evaluation of worsening dyspnea, cough, and patient was diagnosed with COVID-19 at the health department on 09/21/2021. Patient developed symptoms since the day after Thanksgiving, and at this point she is 12 days out from a symptom onset. Initially she had fever and chills, which progressed to worsening cough, and shortness of breath. She believes she became infected at work, where COVID infection was going around. 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 Not get any monoclonal antibodies, did not get any outpatient treatment, chest x-ray in emergency department shows diffuse widespread airspace disease consistent with COVID-19 pneumonia, ARDS. Admission labs showed white blood cell count of 12.5, hemoglobin at 13.8, platelet count of 295, d-dimer of 0.78, INR of 1, electrolytes were within normal limits, B1 was 15 creatinine was 0.50, GFR is greater than 90, AST was elevated at 80, ALT was 70, troponin was less than 0.012, proBNP was 127. Patient denies any history of chronic lung disease, she is a nonsmoker, no history of hypertension or diabetes. Generally she is a healthy adult. CT angiogram of the chest showed no acute pulmonary embolism, and groundglass opacities, diffuse with patchy infiltrates throughout the bilateral lung carmona. Patient was outside the window for Remdesivir, she was started on Decadron, prophylactic Lovenox, and COVID-19 vitamins. On 09/24/2021 patient seen in follow-up. She is breathing a bit easier, still on the same amount of oxygen at 10 L, pulse ox is 91-94%, appears very fatigued overall, but no acute distress, lung sounds reveal diffuse crackles, no Active chest pain, she has a congested cough, no phlegm production, she's been afebrile, she was outside the window for Remdesivir, she continues on Decadron, prophylactic Lovenox, no new labs today, no new chest x-ray. No nausea vomiting or diarrhea, no abdominal pain. Objective - Vital Signs Vital signs: Vital Signs Temp 98.4 F 09/24/21 09:45 Pulse 68 09/24/21 09:45 Resp 17 09/24/21 09:45 BP 122/77 09/24/21 09:45 Pulse Ox 94 L 09/24/21 09:45 Intake & Output 09/23/21 09/24/21 09/24/21 18:59 06:59 18:59 Intake Total 680 1160 Balance 680 1160 Intake: Intake, IV Titration 0 Amount Sodium Chloride 0.9% 1, 0 000 ml @ 20 mls/hr IV . Q24H RIVER Rx#:[id number] Oral 680 1160 Other: # Voids 2 2 - Exam GENERAL EXAM: Alert, very pleasant, 51-year-old female, on 2 L of oxygen with pulse ox of 94% comfortable in no apparent distress. Patient appears fatigued, but no distress noted HEAD: Normocephalic/atraumatic. EYES: Normal reaction of pupils, equal size. Conjunctiva pink, sclera white. NOSE: Clear with pink turbinates. THROAT: No erythema or exudates. NECK: No masses, no JVD, no thyroid enlargement, no adenopathy. CHEST: No chest wall deformity. Symmetrical expansion. LUNGS: Equal air entry with diffuse crackles CVS: Regular rate and rhythm, normal S1 and S2, no gallops, no murmurs, no rubs ABDOMEN: Soft, nontender. No hepatosplenomegaly, normal bowel sounds, no guarding or rigidity. EXTREMITIES: No clubbing, no edema, no cyanosis, 2+ pulses and upper and lower extremities. MUSCULOSKELETAL: Muscle strength and tone normal. SPINE: No scoliosis or deformity SKIN: No rashes CENTRAL NERVOUS SYSTEM: Alert and oriented -3. No focal deficits, tone is normal in all 4 extremities. PSYCHIATRIC: Alert and oriented -3. Appropriate affect. Intact judgment and insight. - Labs CBC & Chem 7: 09/22/21 13:11 09/22/21 13:11 Assessment and Plan Plan: Assessment: #1. Acute hypoxic respiratory failure related to acute COVID-19 pneumonia, patient presented to the emergency department on 09/22/2021 with 12 day history of symptoms, and patient is outside the window for Remdesivir, she is a nonvaccinated adult, patient's oxygen needs quickly progressed from 4 L to 8 L in 24 hours. She has been started on Decadron, prophylactic Lovenox and multivitamins. #2. Mildly elevated d-dimer of 0.78, with no CTA evidence of pulmonary embolism #3. Shortness of breath, cough, diarrhea related to acute COVID-19 infection #4. Migraine headaches #5. Nonsmoker #6. Chronic back pain Plan: Continue titrating FiO2 to keep O2 sats ration is at or above 90% We'll continue Decadron 6 mg daily, continue prophylactic Lovenox Continue COVID-19 vitamins Overall prognosis is guarded Obtain lower extremity Dopplers to rule out possibility of DVT Overall prognosis is guarded We'll continue monitoring for worsening dyspnea and hypoxia I performed a history & physical examination of the patient and discussed their management with my nurse practitioner, Carmelina Spear. I reviewed the nurse practitioner's note and agree with the documented findings and plan of care. Lung sounds are positive for diffuse crackles throughout the lung carmona. The findings and the impression was discussed with the patient. I attest to the documentation by the nurse practitioner. Time with Patient: Less than 30
--- NOTE | 2021-09-24 15:24 | US ---
EXAMINATION TYPE: US venous doppler duplex LE DATE OF EXAM: 09/24/2021 3:15 PM COMPARISON: NONE CLINICAL HISTORY: elevated d-dimer. Covid SIDE PERFORMED: Bilateral TECHNIQUE: The lower extremity deep venous system is examined utilizing real time linear array sonog alf with graded compression, doppler sonography and color-flow sonography. VESSELS IMAGED: Common Femoral Vein Deep Femoral Vein Greater Saphenous Vein * Femoral Vein Popliteal Vein Small Saphenous Vein * Proximal Calf Veins (* superficial vessels) Right Leg: Negative for DVT Left Leg: Negative for DVT IMPRESSION: Grayscale, color doppler, spectral doppler imaging performed of the deep veins of the lo wer extremities. There is normal flow, compressibility, vascular waveforms.
[2021-09-24] MEDS: ACETAMINOPHEN TAB 325 MG TAB PO PRN (20:08)
[2021-09-24] MEDS: BACLOFEN 10 MG TAB PO PRN (20:09)
[2021-09-25] MEDS: ENOXAPARIN 40 MG/0.4 ML SYRINGE SQ SCH (08:26)
[2021-09-25] MEDS: guaiFENesin SYRUP 100MG/5ML 200 MG/10 ML CUP PO PRN (08:26)
[2021-09-25] MEDS: DEXAMETHASONE SOD PHOSPHATE 10 MG/ML 1 ML VIAL IVP SCH (08:26)
[2021-09-25] MEDS: ASCORBIC ACID 500 MG TAB PO SCH (08:27)
[2021-09-25] MEDS: SERTRALINE 100 MG TAB PO SCH (08:27)
[2021-09-25] MEDS: PANTOPRAZOLE 40 MG TABLET PO SCH (08:27)
[2021-09-25] MEDS: ZINC SULFATE 220 MG CAP PO SCH (08:27)
[2021-09-25] MEDS: MELOXICAM 7.5 MG TAB PO SCH (08:27)
[2021-09-25] MEDS: BACLOFEN 10 MG TAB PO PRN ×2 (08:27→21:47)
[2021-09-25] MEDS: GABAPENTIN 300 MG CAP PO SCH ×2 (08:27→21:47)
[2021-09-25] MEDS: CHOLECALCIFEROL 125 MCG (5000 IU) TABLET PO SCH (08:28)
--- NOTE | 2021-09-25 10:26 | P.PN ---
Subjective Progress Note Date: 09/25/21 Principal diagnosis: Dyspnea, hypoxia, COVID-19 This is a 51-year-old female patient without significant medical history who came into the emergency department for evaluation of worsening dyspnea, cough, and patient was diagnosed with COVID-19 at the health department on 09/21/2021. Patient developed symptoms since the day after Thanksgiving, and at this point she is 12 days out from a symptom onset. Initially she had fever and chills, which progressed to worsening cough, and shortness of breath. She believes she became infected at work, where COVID infection was going around. 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 Not get any monoclonal antibodies, did not get any outpatient treatment, chest x-ray in emergency department shows diffuse widespread airspace disease consistent with COVID-19 pneumonia, ARDS. Admission labs showed white blood cell count of 12.5, hemoglobin at 13.8, platelet count of 295, d-dimer of 0.78, INR of 1, electrolytes were within normal limits, B1 was 15 creatinine was 0.50, GFR is greater than 90, AST was elevated at 80, ALT was 70, troponin was less than 0.012, proBNP was 127. Patient denies any history of chronic lung disease, she is a nonsmoker, no history of hypertension or diabetes. Generally she is a healthy adult. CT angiogram of the chest showed no acute pulmonary embolism, and groundglass opacities, diffuse with patchy infiltrates throughout the bilateral lung carmona. Patient was outside the window for Remdesivir, she was started on Decadron, prophylactic Lovenox, and COVID-19 vitamins. On 09/24/2021 patient seen in follow-up. She is breathing a bit easier, still on the same amount of oxygen at 10 L, pulse ox is 91-94%, appears very fatigued overall, but no acute distress, lung sounds reveal diffuse crackles, no Active chest pain, she has a congested cough, no phlegm production, she's been afebrile, she was outside the window for Remdesivir, she continues on Decadron, prophylactic Lovenox, no new labs today, no new chest x-ray. No nausea vomiting or diarrhea, no abdominal pain. On 09/25/2021 patient seen in follow-up on medical surgical floor, she is awake and alert, looks a little better, she states she has exertional dyspnea, she gets up to the commode, she does desaturate with activity, she does however recover, she is currently down to 84% after going to the bathroom, and this is on 8 L of oxygen, she has a persistent cough, nonproductive, FiO2 has been turned up to 10 L until she recovers her O2 saturations. No complaints of chest discomfort, she has been afebrile, blood pressure has been stable, she's had no acute events overnight, she remains on a dry, prophylactic Lovenox, her lower extremity Dopplers were negative for DVT, she is on COVID-19 multivitamins. Her appetite is poor but denies any nausea or vomiting, no diarrhea, no abdominal p ain. Today's d-dimer is 1.2, the rest of the labs are still pending. Objective - Vital Signs Vital signs: Vital Signs Temp 98.1 F 09/25/21 06:00 Pulse 77 09/25/21 06:00 Resp 20 09/25/21 06:00 BP 117/78 09/25/21 06:00 Pulse Ox 90 L 09/25/21 06:00 Intake & Output 09/24/21 09/25/21 09/25/21 18:59 06:59 18:59 Other: # Voids 2 2 3 - Exam GENERAL EXAM: Alert, very pleasant, 51-year-old female, on 8 L of oxygen with pulse ox of 84% has just returned from using the commode, earlier was satting 90% on 8 L, FiO2 has been bumped up to 10 L HEAD: Normocephalic/atraumatic. EYES: Normal reaction of pupils, equal size. Conjunctiva pink, sclera white. NOSE: Clear with pink turbinates. THROAT: No erythema or exudates. NECK: No masses, no JVD, no thyroid enlargement, no adenopathy. CHEST: No chest wall deformity. Symmetrical expansion. LUNGS: Equal air entry with diffuse crackles CVS: Regular rate and rhythm, normal S1 and S2, no gallops, no murmurs, no rubs ABDOMEN: Soft, nontender. No hepatosplenomegaly, normal bowel sounds, no guarding or rigidity. EXTREMITIES: No clubbing, no edema, no cyanosis, 2+ pulses and upper and lower extremities. MUSCULOSKELETAL: Muscle strength and tone normal. SPINE: No scoliosis or deformity SKIN: No rashes CENTRAL NERVOUS SYSTEM: Alert and oriented -3. No focal deficits, tone is normal in all 4 extremities. PSYCHIATRIC: Alert and oriented -3. Appropriate affect. Intact judgment and insight. - Labs CBC & Chem 7: 09/22/21 13:11 09/22/21 13:11 Labs: Abnormal Lab Results - Last 24 Hours (Table) 09/25/21 Range/Units 06:20 D-Dimer 1.20 H (<0.60) mg/L FEU Assessment and Plan Plan: Assessment: #1. Acute hypoxic respiratory failure related to acute COVID-19 pneumonia, patient presented to the emergency department on 09/22/2021 with 12 day history of symptoms, and patient is outside the window for Remdesivir, she is a nonvaccinated adult, patient's oxygen needs quickly progressed from 4 L to 8 L in 24 hours. She has been started on Decadron, prophylactic Lovenox and multivi tamins. #2. Mildly elevated d-dimer of 0.78, with no CTA evidence of pulmonary embolism, no DVT on lower extremity Dopplers #3. Shortness of breath, cough, diarrhea related to acute COVID-19 infection #4. Migraine headaches #5. Nonsmoker #6. Chronic back pain Plan: Patient looks a little better today, breathing easier although her oxygen requirements are at 8-10 l Continue titrating FiO2 to keep O2 sats ration is at or above 90% We'll continue Decadron 6 mg daily, continue prophylactic Lovenox, lower extremity Dopplers were negative for DVT We will obtain follow-up inflammatory markers If further dyspnea and hypoxia, we will escalate treatment to Baricitinib I performed a history & physical examination of the patient and discussed their management with my nurse practitioner, Carmelina Spear. I reviewed the nurse practitioner's note and agree with the documented findings and plan of care. Lung sounds are positive for diffuse crackles throughout the lung carmona. The findings and the impression was discussed with the patient. I attest to the documentation by the nurse practitioner. Time with Patient: Less than 30
[2021-09-25 11:32] LABS: Basophils # (A) 0.02 X 10*3/uL (0.00-0.10); Basophils % (A) 0.1 %; Eosinophils # (A) 0.02 X 10*3/uL (0.04-0.35); Eosinophils % (A) 0.1 %; HCT 42.3 % (37.2-46.3); HGB 13.3 g/dL (12.0-15.0); Lymphocytes # (A) 1.53 X 10*3/uL (0.90-5.00); Lymphocytes % (A) 10.5 %; MCHC 31.4 g/dL (32.0-37.0); MCV 92.4 fL (80.0-97.0); Mean Platelet Volume 10.3 fL (9.5-12.2); Monocytes # (A) 0.69 X 10*3/uL (0.20-1.00); Monocytes % (A) 4.7 %; Neutrophils # (A) 12.21 X 10*3/uL (1.80-7.70); Platelet Count 403 X 10*3/uL (140-440); RBC 4.58 X 10*6/uL (4.10-5.20); RDW 12.5 % (11.5-14.5); WBC 14.56 X 10*3/uL (4.50-10.00)
[2021-09-25] MEDS: guaiFENesin-Coden 100-10MG/5ML 10 ML CUP PO SCH ×3 (12:05→21:47)
[2021-09-25 12:29] LABS: African American GFR (CKD) 126.5 (60.0-200.0); Anion Gap 13.3 mmol/L (10.00-18.00); BUN/Creat Ratio 30.74 Ratio (12.00-20.00); C Reactive Protein 3.6 mg/dL (0.00-0.80); Calcium 8.7 mg/dL (8.7-10.3); Non-African American GFR(CKD) 109.2 (60.0-200.0); Potassium 4.1 mmol/L (3.5-5.5)
--- NOTE | 2021-09-25 16:28 | P.PN ---
Subjective Progress Note Date: 09/25/21 Hillary Greenfield is a 51 yo unvaccinated female with no PMH who presented to the ED with worsening cough and dyspnea over the past 2-3 weeks. She complains of initally fever and chills and then progressed to respiratory symptoms. She went to the health department earlier this week and was diagnosed with COVID. She did not see her PCP or get any outpatient treatment. On presentation pt hypoxic, WBC 12.5k, Cr 0.5, BNP 127, trop negative. She is a nonsmoker. CTA no PE, diffuse infiltrates throughout. 09/24/2021 maintaining O2 sats in the 90s on 10 L high flow nasal cannula. Complains of cough. Afebrile. 09/25/2021 maintaining O2 sats of 90% on 8 L high flow nasal cannula. Reports cough syrup helped, feels better , decreased episodes of waking up coughing. Denies increased shortness of breath, sweating, fever. No diarrhea this morning, did have episode during the night. Denies chest pain, palpitations. Bilateral Dopplers negative for DVT. Labs pending. Objective - Vital Signs Vital signs: Vital Signs Temp 98.3 F 09/25/21 14:00 Pulse 62 09/25/21 14:00 Resp 22 09/25/21 14:00 BP 101/63 09/25/21 14:00 Pulse Ox 96 09/25/21 14:00 Intake & Output 09/24/21 09/25/21 09/25/21 18:59 06:59 18:59 Other: # Voids 2 2 3 - Exam General: Alert and oriented 3, lying in bed, NAD. Vitals reviewed Eyes: PERRL, EOMI, conjunctiva normal HENT: normocephalic, mucus membranes moist Neck: supple, no JVD Lungs: on supplemental O2, crackles at bases CV: Regular rate and rhythm, no murmur. Peripheral pulses 2+ Abdomen: soft, nondistended, no organomegaly, positive bowel sounds Skin: warm and dry. Neuro: No focal deficits - Labs CBC & Chem 7: 09/25/21 06:20 09/25/21 06:20 Labs: Abnormal Lab Results - Last 24 Hours (Table) 09/25/21 09/25/21 09/25/21 Range/Units 06:20 06:20 06:20 WBC 14.56 H (4.50-10.00) X 10*3/uL MCHC 31.4 L (32.0-37.0) g/dL Immature Gran # 0.09 H (0.00-0.04) X 10*3/uL Neutrophils # 12.21 H (1.80-7.70) X 10*3/uL Eosinophils # 0.02 L (0.04-0.35) X 10*3/uL D-Dimer 1.20 H (<0.60) mg/L FEU BUN/Creatinine Ratio 30.74 H (12.00-20.00) Ratio Lactate Dehydrogenase 431 H (120-246) U/L C-Reactive Protein 3.60 H (0.00-0.80) mg/dL Assessment and Plan Assessment: 1. Acute hypoxic respiratory failure secondary to COVID pneumonia. Start decadron, lovenox, COVID vitamins. Pulmonary consult. Supplemental O2 as required 2. Chronic back pain Plan: Continue current medication regime ,monitoring and symptomatic treatment. Labs pending.Covid cocktail, supplemental O2. Prognosis guarded given multiple complex medical issues. The impression and plan of care has been dictated as directed. : I performed a history and examination of this patient, discussed the same with the dictator. I agree with the dictator's note ,documented as a scribe. Any additional findings or plans will be noted.
[2021-09-26] MEDS: DEXAMETHASONE SOD PHOSPHATE 10 MG/ML 1 ML VIAL IVP SCH (07:53)
[2021-09-26] MEDS: ENOXAPARIN 40 MG/0.4 ML SYRINGE SQ SCH (07:53)
[2021-09-26] MEDS: ZINC SULFATE 220 MG CAP PO SCH (07:54)
[2021-09-26] MEDS: GABAPENTIN 300 MG CAP PO SCH ×2 (07:54→22:28)
[2021-09-26] MEDS: MELOXICAM 7.5 MG TAB PO SCH (07:54)
[2021-09-26] MEDS: BACLOFEN 10 MG TAB PO PRN ×2 (07:54→22:28)
[2021-09-26] MEDS: guaiFENesin-Coden 100-10MG/5ML 10 ML CUP PO SCH ×4 (07:54→22:28)
[2021-09-26] MEDS: CHOLECALCIFEROL 125 MCG (5000 IU) TABLET PO SCH (07:54)
[2021-09-26] MEDS: PANTOPRAZOLE 40 MG TABLET PO SCH (07:54)
[2021-09-26] MEDS: ASCORBIC ACID 500 MG TAB PO SCH (07:55)
[2021-09-26] MEDS: SERTRALINE 100 MG TAB PO SCH (07:55)
[2021-09-26 09:46] LABS: African American GFR (CKD) >90 (>60 ml/min/1.73 sqM); Anion Gap 7 mmol/L; Blood Urea Nitrogen 13 mg/dL (7-17); Calcium 8.4 mg/dL (8.4-10.2); Carbon Dioxide 23 mmol/L (22-30); Chloride 107 mmol/L (98-107); Glucose 123 mg/dL (74-99); Non-African American GFR(CKD) >90 (>60 ml/min/1.73 sqM); Potassium 3.6 mmol/L (3.5-5.1); Sodium 137 mmol/L (137-145)
[2021-09-26 09:48] LABS: Magnesium 1.9 mg/dL (1.6-2.3)
[2021-09-26 11:39] LABS: Basophils # (A) 0.01 X 10*3/uL (0.00-0.10); Basophils % (A) 0.1 %; Eosinophils # (A) 0.08 X 10*3/uL (0.04-0.35); Eosinophils % (A) 0.7 %; HCT 38.6 % (37.2-46.3); HGB 12.7 g/dL (12.0-15.0); Lymphocytes # (A) 0.99 X 10*3/uL (0.90-5.00); Lymphocytes % (A) 9.1 %; MCHC 32.9 g/dL (32.0-37.0); MCV 91.3 fL (80.0-97.0); Mean Platelet Volume 10.7 fL (9.5-12.2); Monocytes # (A) 0.61 X 10*3/uL (0.20-1.00); Monocytes % (A) 5.6 %; Neutrophils # (A) 9.07 X 10*3/uL (1.80-7.70); Neutrophils % (A) 83.9 %; Platelet Count 399 X 10*3/uL (140-440); RBC 4.23 X 10*6/uL (4.10-5.20); RDW 12.5 % (11.5-14.5); WBC 10.83 X 10*3/uL (4.50-10.00)
--- NOTE | 2021-09-26 15:26 | P.PN ---
Subjective From records Hillary Greenfield is a 51 yo unvaccinated female with no PMH who presented to the ED with worsening cough and dyspnea over the past 2-3 weeks. She complains of initally fever and chills and then progressed to respiratory symptoms. She went to the health department earlier this week and was diagnosed with COVID. She did not see her PCP or get any outpatient treatment. On presentation pt hypoxic, WBC 12.5k, Cr 0.5, BNP 127, trop negative. She is a nonsmoker. CTA no PE, diffuse infiltrates throughout. 09/26/2021 This is a pleasant 51 years old female with no significant past medical history, presents because of respiratory symptoms secondary to bilateral Covid pneumonia and hypoxia. She has no history of Covid vaccination before. Patient today is more lethargic and sleepy Her oxygen requirement slightly improving but still significantly high at 10 L/m. Rest of vitals and labs looks stable. WBC down to 10 K. Liver enzymes might be elevated, LDH 431 and C-reactive proteins 3.6. CTA of the chest is negative for pulmonary embolism but shows atypical pneumonia and ultrasound of the leg is negative for DVT as well. She is on dexamethasone 6 mg, vitamin C, vitamin D and zinc. Also she is on Pepcid and Lovenox Objective - Vital Signs Vital signs: Vital Signs Temp 99.0 F 09/26/21 09:47 Pulse 69 09/26/21 09:47 Resp 20 09/26/21 09:47 BP 99/61 09/26/21 09:47 Pulse Ox 96 09/26/21 09:47 Intake & Output 09/25/21 09/26/21 09/26/21 18:59 06:59 18:59 Intake Total 960 Balance 960 Intake: Oral 960 Other: # Voids 3 3 3 - Exam GENERAL: The patient is alert and oriented x3, not in any acute distress. Well developed, well nourished. HEENT: Pupils are round and equally reacting to light. EOMI. No scleral icterus. No conjunctival pallor. Normocephalic, atraumatic. No pharyngeal erythema. No thyromegaly. CARDIOVASCULAR: S1 and S2 present. No murmurs, rubs, or gallops. -PULMONARY: Chest is clear to auscultation, no wheezing . bilateral crepitation ABDOMEN: Soft, nontender, nondistended, normoactive bowel sounds. No palpable organomegaly. MUSCULOSKELETAL: No joint swelling or deformity. EXTREMITIES: No cyanosis, clubbing, or pedal edema. NEUROLOGICAL: Gross neurological examination did not reveal any focal deficits. SKIN: No rashes. no petechiae. - Labs CBC & Chem 7: 09/26/21 08:58 09/26/21 08:58 Labs: Abnormal Lab Results - Last 24 Hours (Table) 09/25/21 09/26/21 09/26/21 Range/Units 06:20 08:58 08:58 WBC 10.83 H (4.50-10.00) X 10*3/uL Immature Gran # 0.07 H (0.00-0.04) X 10*3/uL Neutrophils # 9.07 H (1.80-7.70) X 10*3/uL BUN/Creatinine Ratio 30.74 H (12.00-20.00) Ratio Glucose 123 H (74-99) mg/dL Lactate Dehydrogenase 431 H (120-246) U/L C-Reactive Protein 3.60 H (0.00-0.80) mg/dL Assessment and Plan Assessment: Bilateral Covid pneumonia Acute hypoxic respiratory failure Increased inflammatory markers Plan: This is a pleasant 51 years old female who presents with covid pneumonia Continue with dexamethasone Continue with vitamin C, vitamin D and zinc Pulmonary consult Labs and medication were reviewed.. Continue same treatment. Continue with symptomatic treatment. Resume home medication. Monitor lytes and vitals. DVT and GI prophylaxis. Further recommendationsas per clinical course of the patient DVT prophylaxis: Subcutaneous heparin GI Prophylaxis: Pepcid Prognosis is guarded
--- NOTE | 2021-09-26 17:42 | P.PN ---
Subjective Progress Note Date: 09/26/21 Principal diagnosis: Acute hypoxic respiratory failure secondary to COVID-19 pneumonia This is a 51-year-old female patient without significant medical history who came into the emergency department for evaluation of worsening dyspnea, cough, and patient was diagnosed with COVID-19 at the health department on 09/21/2021. Patient developed symptoms since the day after Thanksgiving, and at this point she is 12 days out from a symptom onset. Initially she had fever and chills, which progressed to worsening cough, and shortness of breath. She believes she became infected at work, where COVID infection was going around. 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 Not get any monoclonal antibodies, did not get any outpatient treatment, chest x-ray in emergency department shows diffuse widespread airspace disease consistent with COVID-19 pneumonia, ARDS. Admission labs showed white blood cell count of 12.5, hemoglobin at 13.8, platelet count of 295, d-dimer of 0.78, INR of 1, electrolytes were within normal limits, B1 was 15 creatinine was 0.50, GFR is greater than 90, AST was elevated at 80, ALT was 70, troponin was less than 0.012, proBNP was 127. Patient denies any history of chronic lung disease, she is a nonsmoker, no history of hypertension or diabetes. Generally she is a healthy adult. CT angiogram of the chest showed no acute pulmonary embolism, and groundglass opacities, diffuse with patchy infiltrates throughout the bilateral lung carmona. Patient was outside the window for Remdesivir, she was started on Decadron, prophylactic Lovenox, and COVID-19 vitamins. On 09/24/2021 patient seen in follow-up. She is breathing a bit easier, still on the same amount of oxygen at 10 L, pulse ox is 91-94%, appears very fatigued overall, but no acute distress, lung sounds reveal diffuse crackles, no Active chest pain, she has a congested cough, no phlegm production, she's been afebrile, she was outside the window for Remdesivir, she continues on Decadron, prophylactic Lovenox, no new labs today, no new chest x-ray. No nausea vomiting or diarrhea, no abdominal pain. On 09/25/2021 patient seen in follow-up on medical surgical floor, she is awake and alert, looks a little better, she states she has exertional dyspnea, she gets up to the commode, she does desaturate with activity, she does however recover, she is currently down to 84% after going to the bathroom, and this is on 8 L of oxygen, she has a persistent cough, nonproductive, FiO2 has been turned up to 10 L until she recovers her O2 saturations. No complaints of chest discomfort, she has been afebrile, blood pressure has been stable, she's had no acute events overnight, she remains on a dry, prophylactic Lovenox, her lower extremity Dopplers were negative for DVT, she is on COVID-19 multivitamins. Her appetite is poor but denies any nausea or vomiting, no diarrhea, no abdominal pain. Today's d-dimer is 1.2, the rest of the labs are still pending. Reevaluated today on 09/26/2021, patient is feeling better clinically she is now on 10 L high flow nasal cannula. Feeling better breathing easier, she was yesterday on 8 L but intermittently her saturation has been changing, and today she is on 10 L nasal cannula with O2 saturation in the range of 98-99%. And I believe the patient could be tapered down to 8 L again. Clinically the patient is feeling better. CBC today is relatively normal. D-dimer was 1.20 yesterday. Electrolytes are normal renal profile is normal, LDH is 431 and C-reactive protein 3.6. Objective - Vital Signs Vital signs: Vital Signs Temp 99.1 F 09/26/21 14:00 Pulse 60 09/26/21 14:00 Resp 18 09/26/21 14:00 BP 101/63 09/26/21 14:00 Pulse Ox 99 09/26/21 15:17 Intake & Output 09/25/21 09/26/21 09/26/21 18:59 06:59 18:59 Intake Total 960 Balance 960 Intake: Oral 960 Other: # Voids 3 3 3 - Exam Physical Exam: Revealed a 51-year-old female in no distress on 10 L high flow cannula Head: Atraumatic normocephalic. HEENT:[Neck is supple.] [No neck masses.] [No thyromegaly.] [No JVD.] Chest: [Clear throughout, fine crackles at the bases no rhonchi and no wheezes] Cardiac Exam: [Normal S1 and S2, no S3 gallop, no murmur.] Abdomen: [Soft, nontender, no megaly, no rebound, no guarding, normal bowel sounds.] Extremities: [No clubbing, no edema, no cyanosis.] Neurological Exam: [No focal neurologic deficit.] Psychiatric: Normal mood affect and normal mental status examination. Skin: No rashes. - Labs CBC & Chem 7: 09/26/21 08:58 09/26/21 08:58 Labs: Abnormal Lab Results - Last 24 Hours (Table) 09/26/21 09/26/21 Range/Units 08:58 08:58 WBC 10.83 H (4.50-10.00) X 10*3/uL Immature Gran # 0.07 H (0.00-0.04) X 10*3/uL Neutrophils # 9.07 H (1.80-7.70) X 10*3/uL Glucose 123 H (74-99) mg/dL Assessment and Plan Assessment: #1. Acute hypoxic respiratory failure related to acute COVID-19 pneumonia, patient presented to the emergency department on 09/22/2021 with 12 day history of symptoms, and patient is outside the window for Remdesivir, she is a nonvaccinated adult, patient's oxygen needs quickly progressed from 4 L to 8 L in 24 hours. She has been started on Decadron, prophylactic Lovenox and multivitamins. Today however the patient seems to be doing much better clinically compared to the last couple of days. #2. Mildly elevated d-dimer of 0.78, with no CTA evidence of pulmonary emb olism, no DVT on lower extremity Dopplers #3. Shortness of breath, cough, diarrhea related to acute COVID-19 infection #4. Migraine headaches #5. Nonsmoker #6. Chronic back pain Recommendation: Continue oxygen and titrate accordingly maintain O2 saturation above 90% Continue Decadron Continue Lovenox Continue to monitor inflammatory markers Consider discharge planning in the next 24-48 hours if we could taper the oxygen level down to 5 L or less. Continue to follow. Time with Patient: Less than 30
[2021-09-27] MEDS: guaiFENesin-Coden 100-10MG/5ML 10 ML CUP PO SCH ×4 (06:50→22:12)
[2021-09-27] MEDS: ASCORBIC ACID 500 MG TAB PO SCH (07:05)
[2021-09-27] MEDS: CHOLECALCIFEROL 125 MCG (5000 IU) TABLET PO SCH (07:05)
[2021-09-27] MEDS: PANTOPRAZOLE 40 MG TABLET PO SCH (07:05)
[2021-09-27] MEDS: BACLOFEN 10 MG TAB PO PRN ×2 (07:05→22:12)
[2021-09-27] MEDS: ZINC SULFATE 220 MG CAP PO SCH (07:05)
[2021-09-27] MEDS: ENOXAPARIN 40 MG/0.4 ML SYRINGE SQ SCH (07:06)
[2021-09-27] MEDS: GABAPENTIN 300 MG CAP PO SCH ×2 (07:06→22:12)
[2021-09-27] MEDS: MELOXICAM 7.5 MG TAB PO SCH (07:06)
[2021-09-27] MEDS: SERTRALINE 100 MG TAB PO SCH (07:07)
[2021-09-27] MEDS: DEXAMETHASONE SOD PHOSPHATE 10 MG/ML 1 ML VIAL IVP SCH (07:07)
[2021-09-27] MEDS: AZITHROMYCIN 500 MG TAB PO SCH (11:42)
--- NOTE | 2021-09-27 12:31 | P.PN ---
Subjective Progress Note Date: 09/27/21 Principal diagnosis: Dyspnea, hypoxia, COVID-19 This is a 51-year-old female patient without significant medical history who came into the emergency department for evaluation of worsening dyspnea, cough, and patient was diagnosed with COVID-19 at the health department on 09/21/2021. Patient developed symptoms since the day after Thanksgiving, and at this point she is 12 days out from a symptom onset. Initially she had fever and chills, which progressed to worsening cough, and shortness of breath. She believes she became infected at work, where COVID infection was going around. 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 Not get any monoclonal antibodies, did not get any outpatient treatment, chest x-ray in emergency department shows diffuse widespread airspace disease consistent with COVID-19 pneumonia, ARDS. Admission labs showed white blood cell count of 12.5, hemoglobin at 13.8, platelet count of 295, d-dimer of 0.78, INR of 1, electrolytes were within normal limits, B1 was 15 creatinine was 0.50, GFR is greater than 90, AST was elevated at 80, ALT was 70, troponin was less than 0.012, proBNP was 127. Patient denies any history of chronic lung disease, she is a nonsmoker, no history of hypertension or diabetes. Generally she is a healthy adult. CT angiogram of the chest showed no acute pulmonary embolism, and groundglass opacities, diffuse with patchy infiltrates throughout the bilateral lung carmona. Patient was outside the window for Remdesivir, she was started on Decadron, prophylactic Lovenox, and COVID-19 vitamins. On 09/24/2021 patient seen in follow-up. She is breathing a bit easier, still on the same amount of oxygen at 10 L, pulse ox is 91-94%, appears very fatigued overall, but no acute distress, lung sounds reveal diffuse crackles, no Active chest pain, she has a congested cough, no phlegm production, she's been afebrile, she was outside the window for Remdesivir, she continues on Decadron, prophylactic Lovenox, no new labs today, no new chest x-ray. No nausea vomiting or diarrhea, no abdominal pain. On 09/25/2021 patient seen in follow-up on medical surgical floor, she is awake and alert, looks a little better, she states she has exertional dyspnea, she gets up to the commode, she does desaturate with activity, she does however recover, she is currently down to 84% after going to the bathroom, and this is on 8 L of oxygen, she has a persistent cough, nonproductive, FiO2 has been turned up to 10 L until she recovers her O2 saturations. No complaints of chest discomfort, she has been afebrile, blood pressure has been stable, she's had no acute events overnight, she remains on a dry, prophylactic Lovenox, her lower extremity Dopplers were negative for DVT, she is on COVID-19 multivitamins. Her appetite is poor but denies any nausea or vomiting, no diarrhea, no abdominal p ain. Today's d-dimer is 1.2, the rest of the labs are still pending. On 09/27/2001 patient seen in follow-up on medical surgical floor, she is currently down to 6 L of oxygen pulse ox is 98%, this can probably be further wean down. Breathing more comfortably, still coughing, and at times she is p roducing some phlegm, her pro-calcitonin level came back elevated at 1.84 suggesting possibility of bacterial pneumonia, we will send a sputum culture, we will add empiric antibiotics in the form of azithromycin and Rocephin, continue with Decadron, continue with prophylactic Lovenox and COVID-19 vitamins. Today's labs have been reviewed, with blood cell count is 10.8, hemoglobin is 12.7, a large lites and renal profile were within normal limits, her LDH and CRP were not significantly elevated on labs from 2 days ago. Follow-up labs are pending for today, clinically patient is improving, she sit up on his diabetic, she has been able to use the bedside commode, she is eating, appetite is im proving. Objective - Vital Signs Vital signs: Vital Signs Temp 97.4 F L 09/27/21 10:00 Pulse 60 09/27/21 10:00 Resp 20 09/27/21 10:00 BP 102/64 09/27/21 10:00 Pulse Ox 98 09/27/21 10:00 Intake & Output 09/26/21 09/27/21 09/27/21 18:59 06:59 18:59 Intake Total 960 Balance 960 Intake: Oral 960 Other: # Voids 3 3 - Exam GENERAL EXAM: Alert, very pleasant, 51-year-old female, on 6 L of oxygen with pulse ox of 98% HEAD: Normocephalic/atraumatic. EYES: Normal reaction of pupils, equal size. Conjunctiva pink, sclera white. NOSE: Clear with pink turbinates. THROAT: No erythema or exudates. NECK: No masses, no JVD, no thyroid enlargement, no adenopathy. CHEST: No chest wall deformity. Symmetrical expansion. LUNGS: Equal air entry with diffuse crackles CVS: Regular rate and rhythm, normal S1 and S2, no gallops, no murmurs, no rubs ABDOMEN: Soft, nontender. No hepatosplenomegaly, normal bowel sounds, no guarding or rigidity. EXTREMITIES: No clubbing, no edema, no cyanosis, 2+ pulses and upper and lower extremities. MUSCULOSKELETAL: Muscle strength and tone normal. SPINE: No scoliosis or deformity SKIN: No rashes CENTRAL NERVOUS SYSTEM: Alert and oriented -3. No focal deficits, tone is normal in all 4 extremities. PSYCHIATRIC: Alert and oriented -3. Appropriate affect. Intact judgment and insight. - Labs CBC & Chem 7: 09/26/21 08:58 09/26/21 08:58 Labs: Abnormal Lab Results - Last 24 Hours (Table) 09/26/21 Range/Units 08:58 Procalcitonin 1.84 H (0.02-0.09) ng/mL Assessment and Plan Plan: Assessment: #1. Acute hypoxic respiratory failure related to acute COVID-19 pneumonia, patient presented to the emergency department on 09/22/2021 with 12 day history of symptoms, and patient is outside the window for Remdesivir, she is a nonvaccinated adult, patient's oxygen needs quickly progressed from 4 L to 8 L in 24 hours. She has been started on Decadron, prophylactic Lovenox and mu ltivitamins. On 09/27/2021 patient is improving and she is down to 6 L of oxygen #2. Rule out possibility of bacterial superinfection, suggested by elevated pro calcitonin level of 1.84, patient will be started on azithromycin and Rocephin for empiric antibiotic coverage #2. Mildly elevated d-dimer, with no CTA evidence of pulmonary embolism, no DVT on lower extremity Dopplers. #3. Shortness of breath, cough, diarrhea related to acute COVID-19 infection #4. Migraine headaches #5. Nonsmoker #6. Chronic back pain Plan: Patient is improving, breathing easier, FiO2 down to 6 L We will add azithromycin and Rocephin for possibility of bacterial superinfection Continue weaning FiO2 to keep O2 sats at or above 90% Continue current Decadron, continue Lovenox and COVID-19 multivitamins Clinically patient is improving, Send a sputum culture Increase activity as tolerated I performed a history & physical examination of the patient and discussed their management with my nurse practitioner, Carmelina Spear. I reviewed the nurse practitioner's note and agree with the documented findings and plan of care. Lung sounds are positive for diffuse crackles throughout the lung carmona. The findings and the impression was discussed with the patient. I attest to the documentation by the nurse practitioner. Time with Patient: Less than 30
[2021-09-27 14:48] LABS: Appearance,Urine Clear (Clear); Bilirubin,Urine Negative (Negative); Blood,Urine Negative (Negative); Color,Urine Yellow; Glucose,Urine (UA) Negative (Negative); Ketones,Urine Negative (Negative); Leukocyte Esterase,Urine Negative (Negative); Nitrite,Urine Negative (Negative); Protein,Urine Negative (Negative); Specific Gravity,Urine 1.017 (1.001-1.035); Urobilinogen,Urine <2.0 mg/dL (<2.0)
--- NOTE | 2021-09-27 15:29 | P.PN ---
Subjective From records Hillary Greenfield is a 51 yo unvaccinated female with no PMH who presented to the ED with worsening cough and dyspnea over the past 2-3 weeks. She complains of initally fever and chills and then progressed to respiratory symptoms. She went to the health department earlier this week and was diagnosed with COVID. She did not see her PCP or get any outpatient treatment. On presentation pt hypoxic, WBC 12.5k, Cr 0.5, BNP 127, trop negative. She is a nonsmoker. CTA no PE, diffuse infiltrates throughout. 09/26/2021 This is a pleasant 51 years old female with no significant past medical history, presents because of respiratory symptoms secondary to bilateral Covid pneumonia and hypoxia. She has no history of Covid vaccination before. Patient today is more lethargic and sleepy Her oxygen requirement slightly improving but still significantly high at 10 L/m. Rest of vitals and labs looks stable. WBC down to 10 K. Liver enzymes might be elevated, LDH 431 and C-reactive proteins 3.6. CTA of the chest is negative for pulmonary embolism but shows atypical pneumonia and ultrasound of the leg is negative for DVT as well. She is on dexamethasone 6 mg, vitamin C, vitamin D and zinc. Also she is on Pepcid and Lovenox 09/27/2021 Patient sitting at bedside stating her breathing slightly better and oxygen requirement down to 6 L/m however she still tachypneic with no chest pain. She is afebrile and hemodynamically stable. However labs showing elevated pro-calcitonin at 1.84. Therefore Zithromax and Rocephin were added, follow-up sputum culture, urine legionella and repeat blood culture from today. In the meantime she remains on dexamethasone and vitamin C, vitamin D and zinc. Objective - Vital Signs Vital signs: Vital Signs Temp 99.0 F 09/27/21 14:00 Pulse 73 09/27/21 14:00 Resp 18 09/27/21 14:00 BP 98/62 09/27/21 14:00 Pulse Ox 99 09/27/21 14:00 Intake & Output 09/26/21 09/27/21 09/27/21 18:59 06:59 18:59 Intake Total 960 Balance 960 Intake: Oral 960 Other: # Voids 3 3 - Exam GENERAL: The patient is alert and oriented x3, not in any acute distress. Well developed, well nourished. HEENT: Pupils are round and equally reacting to light. EOMI. No scleral icterus. No conjunctival pallor. Normocephalic, atraumatic. No pharyngeal erythema. No thyromegaly. CARDIOVASCULAR: S1 and S2 present. No murmurs, rubs, or gallops. -PULMONARY: Chest is clear to auscultation, no wheezing . bilateral crepitation ABDOMEN: Soft, nontender, nondistended, normoactive bowel sounds. No palpable organomegaly. MUSCULOSKELETAL: No joint swelling or deformity. EXTREMITIES: No cyanosis, clubbing, or pedal edema. NEUROLOGICAL: Gross neurological examination did not reveal any focal deficits. SKIN: No rashes. no petechiae. - Labs CBC & Chem 7: 09/26/21 08:58 09/26/21 08:58 Labs: Abnormal Lab Results - Last 24 Hours (Table) 09/26/21 Range/Units 08:58 Procalcitonin 1.84 H (0.02-0.09) ng/mL Assessment and Plan Assessment: Bilateral Covid pneumonia Acute hypoxic respiratory failure Increased inflammatory markers Diabetes mellitus Fibromyalgia Hyperlipidemia Hypertension History of hiatal hernia History of osteoarthritis History of rheumatoid arthritis Hypothyroidism Plan: This is a pleasant 51 years old female who presents with covid pneumonia Continue with dexamethasone Continue with vitamin C, vitamin D and zinc Continue with ceftriaxone and Zithromax Pulmonary consult Labs and medication were reviewed.. Continue same treatment. Continue with symptomatic treatment. Resume home medication. Monitor lytes and vitals. DVT and GI prophylaxis. Further recommendationsas per clinical course of the patient DVT prophylaxis: Subcutaneous heparin GI Prophylaxis: Pepcid Prognosis is guarded
[2021-09-28] MEDS: guaiFENesin-Coden 100-10MG/5ML 10 ML CUP PO SCH ×2 (06:10→11:29)
[2021-09-28] MEDS: DEXAMETHASONE SOD PHOSPHATE 10 MG/ML 1 ML VIAL IVP SCH ×2 (08:13→10:04)
[2021-09-28] MEDS: ZINC SULFATE 220 MG CAP PO SCH (08:14)
[2021-09-28] MEDS: PANTOPRAZOLE 40 MG TABLET PO SCH (08:14)
[2021-09-28] MEDS: CHOLECALCIFEROL 125 MCG (5000 IU) TABLET PO SCH (08:14)
[2021-09-28] MEDS: MELOXICAM 7.5 MG TAB PO SCH (08:14)
[2021-09-28] MEDS: ASCORBIC ACID 500 MG TAB PO SCH (08:14)
[2021-09-28] MEDS: SERTRALINE 100 MG TAB PO SCH (08:14)
[2021-09-28] MEDS: GABAPENTIN 300 MG CAP PO SCH (08:14)
[2021-09-28] MEDS: ENOXAPARIN 40 MG/0.4 ML SYRINGE SQ SCH (08:14)
[2021-09-28] MEDS: BACLOFEN 10 MG TAB PO PRN (08:16)
[2021-09-28] MEDS: AZITHROMYCIN 500 MG TAB PO SCH (11:29)
[2021-09-28 18:02] VITALS: BP 163/73; PULSE 89; RESP 16; TEMP 97.3
--- NOTE | 2021-09-28 18:16 | P.PN ---
Subjective Progress Note Date: 09/28/21 Principal diagnosis: Dyspnea, hypoxia, COVID-19 This is a 51-year-old female patient without significant medical history who came into the emergency department for evaluation of worsening dyspnea, cough, and patient was diagnosed with COVID-19 at the health department on 09/21/2021. Patient developed symptoms since the day after Thanksgiving, and at this point she is 12 days out from a symptom onset. Initially she had fever and chills, which progressed to worsening cough, and shortness of breath. She believes she became infected at work, where COVID infection was going around. 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 Not get any monoclonal antibodies, did not get any outpatient treatment, chest x-ray in emergency department shows diffuse widespread airspace disease consistent with COVID-19 pneumonia, ARDS. Admission labs showed white blood cell count of 12.5, hemoglobin at 13.8, platelet count of 295, d-dimer of 0.78, INR of 1, electrolytes were within normal limits, B1 was 15 creatinine was 0.50, GFR is greater than 90, AST was elevated at 80, ALT was 70, troponin was less than 0.012, proBNP was 127. Patient denies any history of chronic lung disease, she is a nonsmoker, no history of hypertension or diabetes. Generally she is a healthy adult. CT angiogram of the chest showed no acute pulmonary embolism, and groundglass opacities, diffuse with patchy infiltrates throughout the bilateral lung carmona. Patient was outside the window for Remdesivir, she was started on Decadron, prophylactic Lovenox, and COVID-19 vitamins. On 09/24/2021 patient seen in follow-up. She is breathing a bit easier, still on the same amount of oxygen at 10 L, pulse ox is 91-94%, appears very fatigued overall, but no acute distress, lung sounds reveal diffuse crackles, no Active chest pain, she has a congested cough, no phlegm production, she's been afebrile, she was outside the window for Remdesivir, she continues on Decadron, prophylactic Lovenox, no new labs today, no new chest x-ray. No nausea vomiting or diarrhea, no abdominal pain. On 09/25/2021 patient seen in follow-up on medical surgical floor, she is awake and alert, looks a little better, she states she has exertional dyspnea, she gets up to the commode, she does desaturate with activity, she does however recover, she is currently down to 84% after going to the bathroom, and this is on 8 L of oxygen, she has a persistent cough, nonproductive, FiO2 has been turned up to 10 L until she recovers her O2 saturations. No complaints of chest discomfort, she has been afebrile, blood pressure has been stable, she's had no acute events overnight, she remains on a dry, prophylactic Lovenox, her lower extremity Dopplers were negative for DVT, she is on COVID-19 multivitamins. Her appetite is poor but denies any nausea or vomiting, no diarrhea, no abdominal p ain. Today's d-dimer is 1.2, the rest of the labs are still pending. On 09/27/2001 patient seen in follow-up on medical surgical floor, she is currently down to 6 L of oxygen pulse ox is 98%, this can probably be further wean down. Breathing more comfortably, still coughing, and at times she is p roducing some phlegm, her pro-calcitonin level came back elevated at 1.84 suggesting possibility of bacterial pneumonia, we will send a sputum culture, we will add empiric antibiotics in the form of azithromycin and Rocephin, continue with Decadron, continue with prophylactic Lovenox and COVID-19 vitamins. Today's labs have been reviewed, with blood cell count is 10.8, hemoglobin is 12.7, a large lites and renal profile were within normal limits, her LDH and CRP were not significantly elevated on labs from 2 days ago. Follow-up labs are pending for today, clinically patient is improving, she sit up on his diabetic, she has been able to use the bedside commode, she is eating, appetite is im proving. On 09/28/2021 patient seen in follow-up on medical surgical floor. She is fully dressed, she's getting ready to go home today. Clinically patient has significantly improved since admission, she is breathing comfortably, mild cough, no phlegm production, she's been afebrile, she remains on Decadron, yesterday with empiric antibiotics for possibility of underlying community- acquired pneumonia. Blood cultures have been negative. Vitals have been stable overnight. Patient has been ambulating in the room, tolerating activity well. Objective - Vital Signs Vital signs: Vital Signs Temp 97.3 F L 09/28/21 18:00 Pulse 89 09/28/21 18:00 Resp 16 09/28/21 18:00 BP 163/73 09/28/21 18:00 Pulse Ox 94 L 09/28/21 18:00 Intake & Output 09/27/21 09/28/21 09/28/21 18:59 06:59 18:59 Intake Total 960 Balance 960 Intake: Oral 960 Other: Voiding Method Toilet # Voids 3 3 3 - Exam GENERAL EXAM: Alert, very pleasant, 51-year-old female, on 2 L of oxygen with pulse ox of 94% HEAD: Normocephalic/atraumatic. EYES: Normal reaction of pupils, equal size. Conjunctiva pink, sclera white. NOSE: Clear with pink turbinates. THROAT: No erythema or exudates. NECK: No masses, no JVD, no thyroid enlargement, no adenopathy. CHEST: No chest wall deformity. Symmetrical expansion. LUNGS: Equal air entry with diffuse crackles CVS: Regular rate and rhythm, normal S1 and S2, no gallops, no murmurs, no rubs ABDOMEN: Soft, nontender. No hepatosplenomegaly, normal bowel sounds, no guarding or rigidity. EXTREMITIES: No clubbing, no edema, no cyanosis, 2+ pulses and upper and lower extremities. MUSCULOSKELETAL: Muscle strength and tone normal. SPINE: No scoliosis or deformity SKIN: No rashes CENTRAL NERVOUS SYSTEM: Alert and oriented -3. No focal deficits, tone is normal in all 4 extremities. PSYCHIATRIC: Alert and oriented -3. Appropriate affect. Intact judgment and insight. - Labs CBC & Chem 7: 09/26/21 08:58 09/26/21 08:58 Labs: Microbiology - Last 24 Hours (Table) 09/27/21 11:34 Blood Culture - Preliminary Blood No Growth after 24 hours 09/27/21 11:40 Blood Culture - Preliminary Blood No Growth after 24 hours Assessment and Plan Plan: Assessment: #1. Acute hypoxic respiratory failure related to acute COVID-19 pneumonia, patient presented to the emergency department on 09/22/2021 with 12 day history of symptoms, and patient is outside the window for Remdesivir, she is a nonvaccinated adult, patient's oxygen needs quickly progressed from 4 L to 8 L in 24 hours. She has been started on Decadron, prophylactic Lovenox and multivitamins. On 09/27/2021 patient is improving and she is down to 2 L of oxygen #2. Rule out possibility of bacterial superinfection, suggested by elevated pro calcitonin level of 1.84, patient will be started on azithromycin and Rocephin for empiric antibiotic coverage #2. Mildly elevated d-dimer, with no CTA evidence of pulmonary embolism, no DVT on lower extremity Dopplers. #3. Shortness of breath, cough, diarrhea related to acute COVID-19 infection #4. Migraine headaches #5. Nonsmoker #6. Chronic back pain Plan: Patient continues to improve breathing easier, FiO2 down to 2 L Patient has been tolerating ambulation She has had no events overnight Patient is being discharged home She will be going home on oral course of antibiotics in the form of Augmentin for 5 days Decadron taper COVID-19 multivitamins Outpatient follow-up with Dr. Adams in the Office in 2 weeks I performed a history & physical examination of the patient and discussed their management with my nurse practitioner, Carmelina Spear. I reviewed the nurse maegan tavera's note and agree with the documented findings and plan of care. Lung sounds are positive for diffuse crackles throughout the lung carmona. The findings and the impression was discussed with the patient. I attest to the documentation by the nurse practitioner. Time with Patient: Less than 30
--- NOTE | 2021-10-01 12:23 | P.DS ---
Providers Date of admission: 09/22/21 14:39 Attending physician: Carlton Hopson MD Consults: 09/22/21 14:40 Consult Physician Routine Consulting Provider: Margo Clayton Consult Reason/Comments: hypoxia Do you want consulting provider notified?: Yes Primary care physician: Lin Tejeda [facility] Course: Final Diagnoses: 1. Acute hypoxic respiratory failure secondary to COVID pneumonia. Maintained on empiric antibiotic coverage, elevated pro calcitonin-possible underlying bacterial infection As well. 2. Chronic back pain Maintained on Covid cocktail, anticoagulated on Lovenox. Evaluated and treated by pulmonary. Received supplemental O2 as required. Significant clinical improvement. Patient will be discharged home today in a stable condition with guarded prognosis pending final DC recommendations and clearance per pulmonary. The impression and plan of care has been dictated as directed. : I performed a history and examination of this patient, discussed the same with the dictator. I agree with the dictator's note ,documented as a scribe. Any additional findings or plans will be noted. Patient Condition at Discharge: Stable Plan - Discharge Summary New Discharge Prescriptions: New Amoxic-Pot Clav 875-125Mg [Augmentin 875-125] 1 tab PO BID 1 Days #10 tab Pantoprazole [Protonix] 40 mg PO AC-BRKFST #30 tab guaiFENesin-Coden 100-10MG/5ML [Robitussin AC] 10 ml PO Q6HR #60 ml Cholecalciferol [Vitamin D3 (125 Mcg = 5000 Iu)] 125 mcg PO DAILY tablet Aspirin EC [Ecotrin Low Dose] 81 mg PO DAILY #60 tab dexAMETHasone ORAL [Hexadrol] See Taper PO DAILY #18 tablet Zinc Sulfate [Orazinc] 220 mg PO DAILY #30 cap Ascorbic Acid [Vitamin C] 500 mg PO DAILY tab Continue Sertraline [Zoloft] 100 mg PO DAILY Gabapentin [Neurontin] 300 mg PO BID Diclofenac Sodium [Voltaren] 75 mg PO BID Acetaminophen Tab [Tylenol] 1,000 mg PO BID Meloxicam 7.5 mg PO DAILY Baclofen [Lioresal] 10 mg PO TID PRN PRN Reason: Muscle Spasm Discharge Medication List Acetaminophen Tab [Tylenol] 1,000 mg PO BID 09/22/21 [History] Baclofen [Lioresal] 10 mg PO TID PRN 09/22/21 [History] Diclofenac Sodium [Voltaren] 75 mg PO BID 09/22/21 [History] Gabapentin [Neurontin] 300 mg PO BID 09/22/21 [History] Meloxicam 7.5 mg PO DAILY 09/22/21 [History] Sertraline [Zoloft] 100 mg PO DAILY 09/22/21 [History] Amoxic-Pot Clav 875-125Mg [Augmentin 875-125] 1 tab PO BID 1 Days #10 tab 09/28/21 [Rx] Ascorbic Acid [Vitamin C] 500 mg PO DAILY tab 09/28/21 [Rx] Aspirin EC [Ecotrin Low Dose] 81 mg PO DAILY #60 tab 09/28/21 [Rx] Cholecalciferol [Vitamin D3 (125 Mcg = 5000 Iu)] 125 mcg PO DAILY tablet 09/28/21 [Rx] Pantoprazole [Protonix] 40 mg PO AC-BRKFST #30 tab 09/28/21 [Rx] Zinc Sulfate [Orazinc] 220 mg PO DAILY #30 cap 09/28/21 [Rx] dexAMETHasone ORAL [Hexadrol] See Taper PO DAILY #18 tablet 09/28/21 [Rx] guaiFENesin-Coden 100-10MG/5ML [Robitussin AC] 10 ml PO Q6HR #60 ml 09/28/21 [Rx] Follow up Appointment(s)/Referral(s): Margo Clayton MD [STAFF PHYSICIAN] - 10/30/21 1:00 pm [facility],Equipment [NON-STAFF] - (*Please call [facility] once home to arrange delivery of oxygen concentrator. ) Lin Tejeda MD [Primary Care Provider] - 10/08/21 10:00 am ([facility]) Patient Instructions/Handouts: Coronavirus Disease 2019 (COVID-19), Using Oxygen at Home (DC) Discharge Disposition: HOME SELF-CARE
== END 2021-09-28 18:13 | disposition home or self-care (01) | DRG 177 ==
LOC: EC 11:01 → 4SSUR 14:39
PROVIDERS: ADMIT Family Medicine; ATTEND Family Medicine
PROC: 3E0333Z Introduction of Anti-inflammatory into Peripheral Vein, Percutaneous Approach (ICD-10-PCS; principal; 2021-09-22)
PROC: 5A0945A Assistance with Respiratory Ventilation, 24-96 Consecutive Hours, High Flow/Velocity Cannula (ICD-10-PCS; 2021-09-23)
DX: U07.1 COVID-19 (principal); J12.82 Pneumonia due to coronavirus disease 2019; J80 Acute respiratory distress syndrome; E03.9 Hypothyroidism, unspecified; E11.9 Type 2 diabetes mellitus without complications; E78.5 Hyperlipidemia, unspecified; G43.909 Migraine, unspecified, not intractable, without status migrainosus; G89.29 Other chronic pain; I10 Essential (primary) hypertension; M06.9 Rheumatoid arthritis, unspecified; M79.7 Fibromyalgia; Z79.1 Long term (current) use of non-steroidal anti-inflammatories (NSAID); Z79.899 Other long term (current) drug therapy; M54.9 Dorsalgia, unspecified; M19.90 Unspecified osteoarthritis, unspecified site; Z88.5 Allergy status to narcotic agent
CPT/HCPCS: 36415; 71045; 71275; 80048; 80053; 81003; 83615; 83735; 83880; 84145; 84484; 85025; 85379; 85610; 85730; 86140; 87040; 87449; 93005; 93970; 96374; 99291

== ENCOUNTER → 2021-10-30 | Outpatient (CLI) | payer BC ==
--- NOTE | 2021-10-30 15:16 | CT ---
EXAMINATION TYPE: CT angio chest DATE OF EXAM: 10/30/2021 COMPARISON: 09/22/2021 HISTORY: 51-year-old female SOB, Hx Covid in September 2021. Stat hold and call TECHNIQUE: Contiguous axial scanning of the chest performed with IV Contrast, patient injected with 1 00 mL of Isovue 370. Coronal/sagittal MIP reconstructions performed. CT DLP: 411.70 mGycm Automated exposure control for dose reduction was used. FINDINGS: The heart is normal size without pericardial effusion. No flattening of the interventricular septum o f contrast into the hepatic veins. Aorta normal caliber with conventional arch vessel branching anatomy. Residual borderline sized and mildly enlarged mediastinal lymph nodes remain measuring up to 1.1 cm a t the nicole and 1.2 cm in the subcarinal region. The lymphadenopathy shows some improvement from prior exam. Large caliber to the main right and left pulmonary arteries at 2.7 and 2.5 cm, respectively, suggesti ng underlying pulmonary hypertension. There is breathing motion artifact but no definite pulmonary e mbolus. Extensive reticular change and groundglass throughout the lungs, overall similar extent, though the o verall density has considerably improved from 09/22/2021. No pleural effusion. Visualized upper abdomen shows cholecystectomy clips. Bones: Mild degenerative disc disease mid to lower thoracic spine. No osseous destructive process. IMPRESSION: 1. EXTENSIVE RETICULAR AND GROUNDGLASS CHANGES THROUGHOUT THE LUNGS WITH OVERALL SIMILAR EXTENT CO MPARED TO 09/22/2021. HOWEVER, THE DENSITY HAS CONSIDERABLY IMPROVED SINCE THEN. CORRELATE FOR RESIDUA L COVID PNEUMONIA VERSUS EXTENSIVE POSTINFECTIOUS SCARRING. 2. FINDINGS SUGGEST PULMONARY ARTERY HYPERTENSION. NO DEFINITE PULMONARY EMBOLUS. 3. THE PREVIOUS REACTIVE LYMPHADENOPATHY HAS IMPROVED.
== END | disposition home or self-care (01) ==
LOC: RADCTMAIN 14:03
PROVIDERS: ATTEND Internal Medicine
DX: R59.1 Generalized enlarged lymph nodes (principal); R91.8 Other nonspecific abnormal finding of lung field; Z86.16 Personal history of COVID-19
CPT/HCPCS: 71275; Q9967

== ENCOUNTER → 2021-12-30 | Outpatient (CLI) | payer BC ==
[2021-12-31 00:28] LABS: % Iron Saturation 8.79 (12.00-45.00)
== END | disposition home or self-care (01) ==
LOC: LABWHC1 16:23
PROVIDERS: ATTEND Psychiatry & Neurology Neurology
DX: R20.2 Paresthesia of skin (principal); R20.8 Other disturbances of skin sensation
CPT/HCPCS: 36415; 83540; 83550

== ENCOUNTER 2022-11-13 08:33 | Emergency (ER) | payer BC ==
[2022-11-13 08:41] VITALS: TEMP 97.8
[2022-11-13] MEDS ORDERED: ONDANSETRON 4 MG/2 ML VIAL IVP STA (08:53)
[2022-11-13] MEDS ORDERED: KETOROLAC 15 MG/ML 1 ML VIAL IVP STA (08:53)
[2022-11-13] MEDS ORDERED: SODIUM CHLORIDE 0.9% 1,000 ML IV STA (08:53)
[2022-11-13] MEDS ORDERED: FAMOTIDINE 20 MG/2 ML VIAL IV STA (08:54)
--- NOTE | 2022-11-13 09:00 | ED ---
Abdominal Pain HPI - General Chief Complaint: Abdominal Pain Stated Complaint: stomach pain Time Seen by Provider: 11/13/22 08:43 Source: patient, RN notes reviewed Mode of arrival: ambulatory Limitations: no limitations - History of Present Illness Initial Comments: This is a 52-year-old female who presents to the emergency department for abdominal pain. States that this is in the mid to lower abdomen with radiation to the back. Symptoms have been present for 2 days. Denies any changes in bowel or bladder habits. She has associated nausea and tried to make herself vomit, but states that she only threw up bile. She had a hernia repaired in the same area approximately 5 years ago, but states that the symptoms feel different and she has not had any problems with this since. She is never had pain like this in the past. States that the pain is much worse when she tries to move around. She took Pepto-Bismol at home with no relief. Denies any fevers, chills, sore throat, cough, dyspnea, chest pain, palpitations, diarrhea, back pain, or headaches. MD Complaint: abdominal pain Onset/Timin -: days(s) Location: periumbilical, LLQ, RLQ Radiation: back Associated Symptoms: nausea - Related Data Home Medications Medication Instructions Recorded Confirmed Acetaminophen Tab [Tylenol] 1,000 mg PO BID 09/22/21 09/22/21 Baclofen [Lioresal] 10 mg PO TID PRN 09/22/21 09/22/21 Diclofenac Sodium [Voltaren] 75 mg PO BID 09/22/21 09/22/21 Gabapentin [Neurontin] 300 mg PO BID 09/22/21 09/22/21 Meloxicam 7.5 mg PO DAILY 09/22/21 09/22/21 Sertraline [Zoloft] 100 mg PO DAILY 09/22/21 09/22/21 Previous Rx's Medication Instructions Recorded Amoxic-Pot Clav 875-125Mg 1 tab PO BID 1 Days #10 tab 09/28/21 [Augmentin 875-125] Ascorbic Acid [Vitamin C] 500 mg PO DAILY tab 09/28/21 Aspirin EC [Ecotrin Low Dose] 81 mg PO DAILY #60 tab 09/28/21 Cholecalciferol [Vitamin D3 (125 125 mcg PO DAILY tablet 09/28/21 Mcg = 5000 Iu)] Pantoprazole [Protonix] 40 mg PO AC-BRKFST #30 tab 09/28/21 Zinc Sulfate [Orazinc] 220 mg PO DAILY #30 cap 09/28/21 dexAMETHasone ORAL [Hexadrol] See Taper PO DAILY #18 tablet 09/28/21 guaiFENesin-Coden 100-10MG/5ML 10 ml PO Q6HR #60 ml 09/28/21 [Robitussin AC] HYDROcodone/APAP 5-325MG [[place] 1 tab PO Q6HR PRN 3 Days #12 tab 11/13/22 5-325] Allergies Allergy/AdvReac Type Severity Reaction Status Date / Time codeine Allergy Unknown Verified 11/13/22 08:41 Review of Systems ROS Statement: Those systems with pertinent positive or pertinent negative responses have been documented in the HPI. ROS Other: All systems not noted in ROS Statement are negative. Past Medical History Past Medical History: No Reported History Additional Past Medical History / Comment(s): migraine, back pain History of Any Multi-Drug Resistant Organisms: None Reported Past Surgical History: Cholecystectomy, Hernia Repair Past Anesthesia/Blood Transfusion Reactions: No Reported Reaction Past Psychological History: No Psychological Hx Reported Smoking Status: Never smoker Past Alcohol Use History: None Reported Past Drug Use History: None Reported General Exam Limitations: no limitations General appearance: alert, in no apparent distress Head exam: Present: atraumatic, normocephalic, normal inspection Respiratory exam: Present: normal lung sounds bilaterally. Absent: respiratory distress, wheezes, rales, rhonchi, stridor Cardiovascular Exam: Present: regular rate, normal rhythm, normal heart sounds. Absent: systolic murmur, diastolic murmur, rubs, gallop, clicks GI/Abdominal exam: Present: soft, tenderness (Mid and lower abdomen bi laterally), hypoactive bowel sounds. Absent: distended Neurological exam: Present: alert, oriented X3, CN II-XII intact Psychiatric exam: Present: normal affect, normal mood Skin exam: Present: warm, dry, intact, normal color. Absent: rash Course Vital Signs 11/13/22 11/13/22 11/13/22 08:39 10:48 11:56 Temperature 97.8 F Pulse Rate 55 L 46 L 55 L Respiratory 20 18 18 Rate Blood Pressure 139/85 130/60 O2 Sat by Pulse 99 97 97 Oximetry 11/13/22 13:08 Temperature 97.8 F Pulse Rate 50 L Respiratory 18 Rate Blood Pressure 140/87 O2 Sat by Pulse 100 Oximetry Medical Decision Making - Medical Decision Making This is a 52-year-old female who presents to the emergency department for abdominal pain. Was pt. sent in by a medical professional or institution? @ -No Did you speak to anyone other than the patient for history? @ -No Did you review nursing and triage notes? @ -Yes, and I agree, it is accurate with regards to the patient's symptoms. Were old charts reviewed? @ -No Differential Diagnosis? @ -Differential Abdominal Pain Women: Appendicitis, diverticulosis, ischemic bowel, pancreatitis, hepatitis, UTI, gastroenteritis, AAA, incarcerated hernia, bowel obstruction, constipation, inflammatory bowel, hepatitis, peptic ulcer disease, splenic infarction, perforated viscus, vulvitis, ovarian torsion, PID, kidney stone, placenta abruption, this is not meant to be an all-inclusive list CT interpreted by me (1pt min.)? @ -Computed tomography scan of the abdomen and pelvis obtained. My interpretation identifies no evidence of bowel wall thickening, dilation, or free air. What testing was considered but not performed? (CT, X-rays, U/S, labs)? Why? @ -None What meds were considered but not given? Why? @ -None Did you discuss the management of the patient with other professionals? @ -No Did you reconcile home meds? @ -No Was smoking cessation discussed for >3mins.? @ -No Was critical care preformed (if so, how long)? @ -No Were there social determinants of health that impacted care today? How? (Homelessness, low income, unemployed, alcoholism, drug addiction, transportation, low edu. Level, literacy, decrease access to med. care, retirement, rehab)? @ -No Was there de-escalation of care discussed even if they declined? (Discuss DNR or withdrawal of care, Hospice)? @ -No What co-morbidities impacted this encounter? (DM, HTN, Smoking, COPD, CAD, Cancer, CVA, Hep., AIDS, mental health diagnosis, sleep apnea, morbid obesity)? @ -Morbid obesity Was patient admitted / discharged? @ -Discharged. Lab work obtained and found to be nonactionable. Urinalysis negative for signs of infection. Computed tomography scan of the abdomen and pelvis redemonstrates the hernia, however there are no acute findings and there is no evidence of strangulation or incarceration. Her symptoms were well- managed in the emergency department. Advised alternating with ibuprofen and Tylenol as needed for pain relief. Rx for 3 day course of [place] provided. She is instructed to take this very sparingly when her pain is the most severe. She'll continue to use her heating pad as needed. She declines the need for any nausea medication. Undiagnosed new problem with uncertain prognosis? @ -Abdominal pain Drug Therapy requiring intensive monitoring for toxicity (Heparin, Nitro, Insulin, Cardizem)? @ -None Were any procedures done? @ -None Diagnosis/symptom? @ -Abdominal pain Acute, or Chronic, or Acute on Chronic? @ -Acute Uncomplicated (without systemic symptoms) or Complicated (systemic symptoms)? @ -Uncomplicated Side effects of treatment? @ -None Exacerbation, Progression, or Severe Exacerbation] @ -Not applicable Poses a threat to life or bodily function? @ -No Return precautions reviewed in depth, the patient is instructed to return to the emergency department with any new, worsening, or concerning symptoms. Patient verbalized understanding. This case was discussed in detail with the attending ED physician, Dr. Flowers. Presentation, findings, and treatment plan discussed in detail as well. - Lab Data Result diagrams: 11/13/22 09:13 11/13/22 09:13 Lab Results 11/13/22 11/13/22 11/13/22 Range/Units 09:13 09:13 09:13 WBC 7.5 (3.8-10.6) k/uL RBC 4.73 (3.80-5.40) m/uL Hgb 14.2 (11.4-16.0) gm/dL Hct 41.8 (34.0-46.0) % MCV 88.4 (80.0-100.0) fL MCH 29.9 (25.0-35.0) pg MCHC 33.9 (31.0-37.0) g/dL RDW 12.6 (11.5-15.5) % Plt Count 124 L (150-450) k/uL MPV 9.5 Neutrophils % 70 % Lymphocytes % 23 % Monocytes % 4 % Eosinophils % 1 % Basophils % 1 % Neutrophils # 5.3 (1.3-7.7) k/uL Lymphocytes # 1.7 (1.0-4.8) k/uL Monocytes # 0.3 (0-1.0) k/uL Eosinophils # 0.1 (0-0.7) k/uL Basophils # 0.1 (0-0.2) k/uL Sodium 140 (137-145) mmol/L Potassium 3.9 (3.5-5.1) mmol/L Chloride 113 H (98-107) mmol/L Carbon Dioxide 22 (22-30) mmol/L Anion Gap 5 mmol/L BUN 16 (7-17) mg/dL Creatinine 0.61 (0.52-1.04) mg/dL Est GFR (CKD-EPI)AfAm >90 (>60 ml/min/1.73 sqM) Est GFR (CKD-EPI)NonAf >90 (>60 ml/min/1.73 sqM) Glucose 93 (74-99) mg/dL Plasma Lactic Acid Andrzej (0.7-2.0) mmol/L Calcium 8.7 (8.4-10.2) mg/dL Total Bilirubin 0.7 (0.2-1.3) mg/dL AST 31 (14-36) U/L ALT 22 (4-34) U/L Alkaline Phosphatase 63 (38-126) U/L Troponin I (0.000-0.034) ng/mL Total Protein 7.0 (6.3-8.2) g/dL Albumin 4.2 (3.5-5.0) g/dL Amylase 59 (30-110) U/L Lipase 75 (23-300) U/L Urine Color Yellow Urine Appearance Clear (Clear) Urine pH 5.5 (5.0-8.0) Ur Specific [place] 1.017 (1.001-1.035) Urine Protein Negative (Negative) Urine Glucose (UA) Negative (Negative) Urine Ketones Negative (Negative) Urine Blood Negative (Negative) Urine Nitrite Negative (Negative) Urine Bilirubin Negative (Negative) Urine Urobilinogen <2.0 (<2.0) mg/dL Ur Leukocyte Esterase Negative (Negative) 11/13/22 11/13/22 Range/Units 09:13 09:13 WBC (3.8-10.6) k/uL RBC (3.80-5.40) m/uL Hgb (11.4-16.0) gm/dL Hct (34.0-46.0) % MCV (80.0-100.0) fL MCH (25.0-35.0) pg MCHC (31.0-37.0) g/dL RDW (11.5-15.5) % Plt Count (150-450) k/uL MPV Neutrophils % % Lymphocytes % % Monocytes % % Eosinophils % % Basophils % % Neutrophils # (1.3-7.7) k/uL Lymphocytes # (1.0-4.8) k/uL Monocytes # (0-1.0) k/uL Eosinophils # (0-0.7) k/uL Basophils # (0-0.2) k/uL Sodium (137-145) mmol/L Potassium (3.5-5.1) mmol/L Chloride (98-107) mmol/L Carbon Dioxide (22-30) mmol/L Anion Gap mmol/L BUN (7-17) mg/dL Creatinine (0.52-1.04) mg/dL Est GFR (CKD-EPI)AfAm (>60 ml/min/1.73 sqM) Est GFR (CKD-EPI)NonAf (>60 ml/min/1.73 sqM) Glucose (74-99) mg/dL Plasma Lactic Acid Andrzej 0.9 (0.7-2.0) mmol/L Calcium (8.4-10.2) mg/dL Total Bilirubin (0.2-1.3) mg/dL AST (14-36) U/L ALT (4-34) U/L Alkaline Phosphatase (38-126) U/L Troponin I <0.012 (0.000-0.034) ng/mL Total Protein (6.3-8.2) g/dL Albumin (3.5-5.0) g/dL Amylase (30-110) U/L Lipase (23-300) U/L Urine Color Urine Appearance (Clear) Urine pH (5.0-8.0) Ur Specific [place] (1.001-1.035) Urine Protein (Negative) Urine Glucose (UA) (Negative) Urine Ketones (Negative) Urine Blood (Negative) Urine Nitrite (Negative) Urine Bilirubin (Negative) Urine Urobilinogen (<2.0) mg/dL Ur Leukocyte Esterase (Negative) - Radiology Data Radiology results: report reviewed, image reviewed Disposition Clinical Impression: Abdominal pain Disposition: HOME SELF-CARE Instructions (If sedation given, give patient instructions): Abdominal Pain (ED) Additional Instructions: Return to the emergency department with any new, worsening, or concerning symptoms. Alternate with ibuprofen and Tylenol for pain relief. Take the [place] sparingly when your pain is the most severe. Continue trying to use a heating pad. Follow up with your primary care provider in 1-2 days. Prescriptions: HYDROcodone/APAP 5-325MG [[place] 5-325] 1 tab PO Q6HR PRN 3 Days #12 tab PRN Reason: Pain Is patient prescribed a controlled substance at d/c from ED?: Yes When asked, does pt state using other controlled substances?: Yes If prescribed controlled substance>3 days was MAPS reviewed?: Prescribed <3 Days Referrals: Lin Tejeda MD [Primary Care Provider] - 1-2 days
[2022-11-13 09:23] LABS: Basophils # (A) 0.1 k/uL (0-0.2); Basophils % (A) 1 %; Eosinophils # (A) 0.1 k/uL (0-0.7); Eosinophils % (A) 1 %; HCT 41.8 % (34.0-46.0); HGB 14.2 gm/dL (11.4-16.0); Lymphocytes # (A) 1.7 k/uL (1.0-4.8); Lymphocytes % (A) 23 %; MCH 29.9 pg (25.0-35.0); MCHC 33.9 g/dL (31.0-37.0); MCV 88.4 fL (80.0-100.0); Mean Platelet Volume 9.5; Monocytes # (A) 0.3 k/uL (0-1.0); Monocytes % (A) 4 %; Neutrophils # (A) 5.3 k/uL (1.3-7.7); Neutrophils % (A) 70 %; Platelet Count 124 k/uL (150-450); RBC 4.73 m/uL (3.80-5.40); RDW 12.6 % (11.5-15.5); WBC 7.5 k/uL (3.8-10.6)
[2022-11-13 09:24] LABS: Appearance,Urine Clear (Clear); Bilirubin,Urine Negative (Negative); Blood,Urine Negative (Negative); Color,Urine Yellow; Glucose,Urine (UA) Negative (Negative); Ketones,Urine Negative (Negative); Leukocyte Esterase,Urine Negative (Negative); Nitrite,Urine Negative (Negative); PH, Urine 5.5 (5.0-8.0); Protein,Urine Negative (Negative); Specific Gravity,Urine 1.017 (1.001-1.035); Urobilinogen,Urine <2.0 mg/dL (<2.0)
[2022-11-13 09:35] LABS: ALT 22 U/L (4-34); AST 31 U/L (14-36); African American GFR (CKD) >90 (>60 ml/min/1.73 sqM); Albumin 4.2 g/dL (3.5-5.0); Alkaline Phosphatase 63 U/L (38-126); Amylase 59 U/L (30-110); Anion Gap 5 mmol/L; Blood Urea Nitrogen 16 mg/dL (7-17); Calcium 8.7 mg/dL (8.4-10.2); Carbon Dioxide 22 mmol/L (22-30); Chloride 113 mmol/L (98-107); Glucose 93 mg/dL (74-99); Lipase 75 U/L (23-300); Non-African American GFR(CKD) >90 (>60 ml/min/1.73 sqM); Potassium 3.9 mmol/L (3.5-5.1); Sodium 140 mmol/L (137-145); Total Bilirubin 0.7 mg/dL (0.2-1.3)
--- NOTE | 2022-11-13 10:08 | CT ---
EXAMINATION TYPE: CT abdomen pelvis w con CT DLP: 1340.9 mGycm, Automated exposure control for dose reduction was used. DATE OF EXAM: 11/13/2022 9:45 AM COMPARISON: CT abdomen pelvis most recent from 11/25/2015 CLINICAL INDICATION:Female, 52 years old with history of abdominal pain, acute, nonlocalized; Lower a bdominal pain. TECHNIQUE: Axial CT of the abdomen and pelvis. Sagittal and coronal reformats were created on a [employer] workstation. Contrast used:100ml mL of Isovue 300 with IV Contrast, Oral contrast used: without Oral Contrast FINDINGS: LOWER CHEST: Unremarkable ABDOMEN LIVER: Diffusely hypoattenuating parenchyma. GALLBLADDER AND BILE DUCTS: The gallbladder is surgically absent. PANCREAS: Unremarkable. SPLEEN: Unremarkable. ADRENAL GLANDS: Unremarkable. KIDNEYS AND URETERS: No evidence of hydronephrosis or renal calculus. The ureters are unremarkable. PELVIS BLADDER: Unremarkable REPRODUCTIVE: Unremarkable. ABDOMEN & PELVIS STOMACH AND BOWEL: No evidence of bowel obstruction. Right lower lateral hernia containing loops of s mall bowel. No evidence of bowel thickening or obstruction. PERITONEUM/RETROPERITONEUM: No evidence of pneumoperitoneum or free fluid. . VASCULATURE: No evidence of aortic aneurysm. MUSCULOSKELETAL: No acute osseous abnormalities, multilevel disc degeneration changes with scoliosis changes of the spine. LYMPH NODES: No gross evidence for lymphadenopathy. SOFT TISSUE/ABDOMINAL WALL: Unremarkable IMPRESSION: 1. Right lower spigelian hernia containing loops of small bowel. No evidence of bowel thickening or obstruction. 2. No evidence for acute abdominal process. 3. Hepatic steatosis.
[2022-11-13 10:49] VITALS: RESP 18
[2022-11-13] MEDS ORDERED: MORPHINE SULFATE 4 MG/ML SYRINGE IVP STA (10:50)
[2022-11-13] MEDS ORDERED: HYDROcodone/APAP 5-325MG 1 EACH TAB PO STA (11:51)
[2022-11-13 13:10] VITALS: BP 140/87; PULSE 50
== END 2022-11-13 13:12 | disposition home or self-care (01) ==
LOC: EC 08:33
DX: R10.33 Periumbilical pain (principal); R10.31 Right lower quadrant pain; R10.32 Left lower quadrant pain; Z88.5 Allergy status to narcotic agent; Z90.49 Acquired absence of other specified parts of digestive tract
CPT/HCPCS: 36415; 93005; 80053; 82150; 83605; 83690; 84484; 85025; 81003; 74177; 99285; 96374; 96375; 96361; J2270; J2405; J1885; Q9967

== ENCOUNTER 2023-02-03 16:27 | Emergency (ER) | payer BC ==
[2023-02-03 16:47] VITALS: TEMP 98.1
[2023-02-03] MEDS ORDERED: methylPREDNISolone SOD SUCCI 125 MG/2 ML VIAL IM ONE (18:45)
[2023-02-03] MEDS ORDERED: KETOROLAC 15 MG/ML 1 ML VIAL IM STA (18:46)
[2023-02-03] MEDS ORDERED: LIDOCAINE 5% PATCH TOPICAL SCH (19:00)
--- NOTE | 2023-02-03 19:17 | ED ---
Back Pain HPI - General Chief Complaint: Back Pain/Injury Stated Complaint: Back Pain Time Seen by Provider: 02/03/23 18:34 Source: patient Limitations: no limitations - History of Present Illness Initial Comments: Patient is a 52-year-old female presents to the emergency department for back pain. Patient has history of chronic back pain. She has a senior talent acquisition specialist she cannot remember the name. She is prescribed [place] at home. States she ran out yesterday and has appointment next week. Patient reports pain in her left lower back similar to her chronic back pain. No recent injury or fall. She does report new-onset of numbness and tingling down the back of her left leg. She denies saddle anesthesia, loss of bowel and bladder function. Denies leg weakness. Denies fever, chills, nausea, vomiting, burning with urination, blood in the urine. - Related Data Home Medications Medication Instructions Recorded Confirmed Acetaminophen Tab [Tylenol] 1,000 mg PO BID 09/22/21 09/22/21 Baclofen [Lioresal] 10 mg PO TID PRN 09/22/21 09/22/21 Diclofenac Sodium [Voltaren] 75 mg PO BID 09/22/21 09/22/21 Gabapentin [Neurontin] 300 mg PO BID 09/22/21 09/22/21 Meloxicam 7.5 mg PO DAILY 09/22/21 09/22/21 Sertraline [Zoloft] 100 mg PO DAILY 09/22/21 09/22/21 Previous Rx's Medication Instructions Recorded Amoxic-Pot Clav 875-125Mg 1 tab PO BID 1 Days #10 tab 09/28/21 [Augmentin 875-125] Ascorbic Acid [Vitamin C] 500 mg PO DAILY tab 09/28/21 Aspirin EC [Ecotrin Low Dose] 81 mg PO DAILY #60 tab 09/28/21 Cholecalciferol [Vitamin D3 (125 125 mcg PO DAILY tablet 09/28/21 Mcg = 5000 Iu)] Pantoprazole [Protonix] 40 mg PO AC-BRKFST #30 tab 09/28/21 Zinc Sulfate [Orazinc] 220 mg PO DAILY #30 cap 09/28/21 dexAMETHasone ORAL [Hexadrol] See Taper PO DAILY #18 tablet 09/28/21 guaiFENesin-Coden 100-10MG/5ML 10 ml PO Q6HR #60 ml 09/28/21 [Robitussin AC] HYDROcodone/APAP 5-325MG [[place] 1 tab PO Q6HR PRN 3 Days #12 tab 11/13/22 5-325] Ibuprofen [Motrin] 800 mg PO Q8HR PRN #30 tab 02/03/23 Lidocaine 5% Patch [Lidoderm] 1 patch TOPICAL DAILY PRN #7 patch 02/03/23 predniSONE 50 mg PO DAILY #5 tab 02/03/23 Allergies Allergy/AdvReac Type Severity Reaction Status Date / Time codeine Allergy Unknown Verified 02/03/23 16:47 Review of Systems ROS Statement: Those systems with pertinent positive or pertinent negative responses have been documented in the HPI. ROS Other: All systems not noted in ROS Statement are negative. Past Medical History Past Medical History: No Reported History Additional Past Medical History / Comment(s): migraine, back pain History of Any Multi-Drug Resistant Organisms: None Reported Past Surgical History: Cholecystectomy, Hernia Repair Past Anesthesia/Blood Transfusion Reactions: No Reported Reaction Past Psychological History: No Psychological Hx Reported Smoking Status: Never smoker Past Alcohol Use History: None Reported Past Drug Use History: None Reported General Exam Limitations: no limitations General appearance: alert, in no apparent distress Head exam: Present: atraumatic, normocephalic, normal inspection Respiratory exam: Present: normal lung sounds bilaterally. Absent: respiratory distress, wheezes, rales, rhonchi, stridor Cardiovascular Exam: Present: regular rate, normal rhythm, normal heart sounds. Absent: systolic murmur, diastolic murmur, rubs, gallop, clicks Back exam: Present: normal inspection, full ROM, paraspinal tenderness (left lumbar). Absent: CVA tenderness (R), CVA tenderness (L), vertebral tenderness Neurological exam: Present: alert, oriented X3, CN II-XII intact Expanded Sensory exam: Upper Extremity Light Touch: Normal, Lower Extremity Light Touch: Normal Motor strength exam: RUE: 5, LUE: 5, RLE: 5, LLE: 5 Psychiatric exam: Present: normal affect, normal mood Skin exam: Present: warm, dry, intact, normal color. Absent: rash Course Vital Signs 02/03/23 02/03/23 16:45 20:22 Temperature 98.1 F 98.1 F Pulse Rate 61 68 Respiratory 20 16 Rate Blood Pressure 152/92 146/82 O2 Sat by Pulse 97 98 Oximetry Medical Decision Making - Medical Decision Making Was pt. sent in by a medical professional or institution (ANIL Glynn, SAFETY LAMP KEEPER, urgent care, hospital, or skilled nursing...) When possible be specific @ -No Did you speak to anyone other than the patient for history (EMS, parent, family, police, friend...)? What history was obtained from this source @ -No Did you review nursing and triage notes (agree or disagree)? Why? @ -I reviewed and agree with nursing and triage notes Were old charts reviewed (outside hosp., previous admission, EMS record, old EKG, old radiological studies, urgent care reports/EKG's, skilled nursing records)? Report findings @ -No old charts were reviewed Differential Diagnosis (chest pain, altered mental status, abdominal pain women, abdominal pain men, vaginal bleeding, weakness, fever, dyspnea, syncope, headache, dizziness, GI bleed, back pain, seizure, CVA, palpatations, mental health)? @ -Differential Back Pain: Strain, zoster, cauda equina syndrome, epidural abscess, vertebral osteomyelitis, discitis, fracture, subluxation, disc herniation, DJD, spinal stenosis, dissection, AAA, pancreatitis, peptic ulcer disease, pyelonephritis, kidney stone, this is not meant to be an all-inclusive list. EKG interpreted by me (3pts min.). @ -As above X-rays interpreted by me (1pt min.). @ -None done CT interpreted by me (1pt min.). @ -None done U/S interpreted by me (1pt. min.). @ -None done What testing was considered but not performed or refused? (CT, X-rays, U/S, labs)? Why? @ -Considered imaging however patient does not have midline tenderness. No reinjury. No focal deficits or weakness. What meds were considered but not given or refused? Why? @ -None Did you discuss the management of the patient with other professionals (professionals i.e. ANIL Glynn, SAFETY LAMP KEEPER, lab, RT, psych nurse, outreach and education social worker, check writer, teacher, special loan officer, pillowcase cleaner)? Give summary @ -No Was smoking cessation discussed for >3mins.? @ -No Was critical care preformed (if so, how long)? @ -No Were there social determinants of health that impacted care today? How? (Homelessness, low income, unemployed, alcoholism, drug addiction, transportation, low edu. Level, literacy, decrease access to med. care, senior living, rehab)? @ -No Was there de-escalation of care discussed even if they declined (Discuss DNR or withdrawal of care, Hospice)? DNR status @ -No What co-morbidities impacted this encounter? (DM, HTN, Smoking, COPD, CAD, Cancer, CVA, ARF, Chemo, Hep., AIDS, mental health diagnosis, sleep apnea, morbid obesity)? @ -None Was patient admitted / discharged? Hospital course, mention meds given and route, prescriptions, significant lab abnormalities, going to OR and other pertinent info. @ -Patient presenting for back pain with new radicular symptoms down the left lower extremity. No symptoms or signs of cauda equina. No weakness. Patient given Solu-Medrol and pain medication with improvement. She will follow-up with her senior talent acquisition specialist next week as planned. She will be discharged with prednisone for lumbar radiculopathy and pain management. Undiagnosed new problem with uncertain prognosis? @ -No Drug Therapy requiring intensive monitoring for toxicity (Heparin, Nitro, Insulin, Cardizem)? @ -No Were any procedures done? @ -No Diagnosis/symptom? @ Lumbar radiculopathy Acute, or Chronic, or Acute on Chronic? @ -Acute Uncomplicated (without systemic symptoms) or Complicated (systemic symptoms)? @ -Uncomplicated Side effects of treatment? @ -No Exacerbation, Progression, or Severe Exacerbation? @ -No Poses a threat to life or bodily function? How? (Chest pain, [place], [place], pneumonia, PE, COPD, DKA, ARF, appy, cholecystitis, CVA, Diverticulitis, Homicidal, Suicidal, threat to staff... and all critical care pts) @ -No Dr. Young is my attending Disposition Clinical Impression: Lumbar radiculopathy Disposition: HOME SELF-CARE Condition: Good Instructions (If sedation given, give patient instructions): Acute Low Back Pain (ED) Additional Instructions: Take medication as directed. Follow-up with senior talent acquisition specialist in 1-2 days. Return to emergency department if you experience new, concerning, or worsening symptoms Prescriptions: Lidocaine 5% Patch [Lidoderm] 1 patch TOPICAL DAILY PRN #7 patch PRN Reason: Pain Ibuprofen [Motrin] 800 mg PO Q8HR PRN #30 tab PRN Reason: Pain predniSONE 50 mg PO DAILY #5 tab Is patient prescribed a controlled substance at d/c from ED?: No Referrals: Lin Tejeda MD [Primary Care Provider] - 1-2 days
[2023-02-03] MEDS ORDERED: HYDROmorphone 0.5 MG/0.5 ML SYRINGE IM STA (19:31)
[2023-02-03 20:24] VITALS: BP 146/82; PULSE 68; RESP 16
== END 2023-02-03 20:25 | disposition home or self-care (01) ==
LOC: EC 16:27
DX: M54.16 Radiculopathy, lumbar region (principal); Z88.5 Allergy status to narcotic agent
CPT/HCPCS: 99283; 96372 ×2; J2930; J1885

== ENCOUNTER 2024-01-03 09:55 | Emergency (ER) | payer OTHER, BC ==
--- NOTE | 2024-01-03 10:05 | ED ---
Upper Extremity HPI - General Chief Complaint: Extremity Injury, Upper Stated Complaint: R Wrist Injury Time Seen by Provider: 01/03/24 10:05 Source: patient, RN notes reviewed Mode of arrival: ambulatory Limitations: no limitations - History of Present Illness Initial Comments: 53-year-old female to the emergency department chief complaint of right wrist pain. 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 Place a plastic was on the floor which she did not see, she took a step backwards resulting in her falling on her outstretched right wrist. Patient fell she denies hitting her head or feeling lightheaded, heart palpitations, dizziness or lightheaded before the fall. She states that she does limp. Patient denies any overt tenderness or discomfort to her elbow, states that most of her pain is localized at the dorsal aspect of her forearm and over the thenar region. States that she is taken aspirin at home yesterday and this morning with minimal relief. Denies any numbness or tingling to the right hand or digits. - Related Data Home Medications Medication Instructions Recorded Confirmed Acetaminophen Tab [Tylenol] 1,000 mg PO BID 09/22/21 09/22/21 Baclofen [Lioresal] 10 mg PO TID PRN 09/22/21 09/22/21 Diclofenac Sodium [Voltaren] 75 mg PO BID 09/22/21 09/22/21 Gabapentin [Neurontin] 300 mg PO BID 09/22/21 09/22/21 Meloxicam 7.5 mg PO DAILY 09/22/21 09/22/21 Sertraline [Zoloft] 100 mg PO DAILY 09/22/21 09/22/21 Previous Rx's Medication Instructions Recorded Amoxic-Pot Clav 875-125Mg 1 tab PO BID 1 Days #10 tab 09/28/21 [Augmentin 875-125] Ascorbic Acid [Vitamin C] 500 mg PO DAILY tab 09/28/21 Aspirin EC [Ecotrin Low Dose] 81 mg PO DAILY #60 tab 09/28/21 Cholecalciferol [Vitamin D3 (125 125 mcg PO DAILY tablet 09/28/21 Mcg = 5000 Iu)] Pantoprazole [Protonix] 40 mg PO AC-BRKFST #30 tab 09/28/21 Zinc Sulfate [Orazinc] 220 mg PO DAILY #30 cap 12/13/21 dexAMETHasone ORAL [Hexadrol] See Taper PO DAILY #18 tablet 09/28/21 guaiFENesin-Coden 100-10MG/5ML 10 ml PO Q6HR #60 ml 09/28/21 [Robitussin AC] HYDROcodone/APAP 5-325MG [[place] 1 tab PO Q6HR PRN 3 Days #12 tab 11/13/22 5-325] Ibuprofen [Motrin] 800 mg PO Q8HR PRN #30 tab 02/03/23 Lidocaine 5% Patch [Lidoderm] 1 patch TOPICAL DAILY PRN #7 patch 02/03/23 predniSONE 50 mg PO DAILY #5 tab 02/03/23 Ibuprofen [Motrin] 600 mg PO Q8HR PRN #30 tab 01/03/24 Allergies Allergy/AdvReac Type Severity Reaction Status Date / Time No Known Allergies Allergy Verified 01/03/24 10:01 Review of Systems ROS Statement: Those systems with pertinent positive or pertinent negative responses have been documented in the HPI. ROS Other: All systems not noted in ROS Statement are negative. Past Medical History Past Medical History: No Reported History Additional Past Medical History / Comment(s): migraine, back pain History of Any Multi-Drug Resistant Organisms: None Reported Past Surgical History: Cholecystectomy, Hernia Repair Past Anesthesia/Blood Transfusion Reactions: No Reported Reaction Past Psychological History: Anxiety, Depression Smoking Status: Current some day smoker Past Alcohol Use History: None Reported Past Drug Use History: None Reported General Exam Limitations: no limitations General appearance: alert, in no apparent distress Head exam: Present: atraumatic, normocephalic, normal inspection Eye exam: Present: normal appearance, PERRL, EOMI. Absent: scleral icterus, conjunctival injection, periorbital swelling ENT exam: Present: normal exam, mucous membranes moist Neck exam: Present: normal inspection. Absent: tenderness, meningismus, lymphadenopathy Respiratory exam: Present: normal lung sounds bilaterally. Absent: respiratory distress, wheezes, rales, rhonchi, stridor Cardiovascular Exam: Present: regular rate, normal rhythm, normal heart sounds. Absent: systolic murmur, diastolic murmur, rubs, gallop, clicks GI/Abdominal exam: Present: soft, normal bowel sounds. Absent: distended, tenderness, guarding, rebound, rigid Right Upper Arm exam: Present: normal inspection, full ROM. Absent: tenderness, swelling, ecchymosis Elbow exam: Present: normal inspection, full ROM (flexion of elbow elicits distal pain in the radial region of the wrist) Forearm Wrist exam: Present: tenderness, swelling, ecchymosis (diffuse blue/dark red ecchymosis over the dorsal hand), deformity (diffuse swelling over the dorsal region of the hand with eccyhomsis over the thenar muscles). Absent: full ROM Hand Wrist exam: Absent: normal inspection, full ROM Neuro motor exam: Present: thumb opposition intact, thumb adduction intact Vascular: Present: normal capillary refill, radial pulse (1+ radial pulse palpated). Absent: vascular compromise, pulse deficit radial art Back exam: Present: normal inspection Neurological exam: Present: alert, oriented X3, CN II-XII intact Psychiatric exam: Present: normal affect, normal mood Skin exam: Present: warm, dry, intact, normal color. Absent: rash Course Vital Signs 01/03/24 01/03/24 09:57 11:43 Temperature 97.8 F 97.8 F Pulse Rate 63 67 Respiratory 16 1 L Rate Blood Pressure 129/86 133/84 O2 Sat by Pulse 99 99 Oximetry Procedures - Orthopedic Splinting/Casting Injury #1 Side: right Upper Extremity Injury Location: short arm Upper Extremity Immobilizer: wrist splint, Siddharth wrap, synthetic pre-padded splint Medical Decision Making - Medical Decision Making Was pt. sent in by a medical professional or institution (ANIL Glynn, MERCHANDISE ADJUSTMENT CLERK, urgent care, hospital, or care home...) When possible be specific @ -No Did you speak to anyone other than the patient for history (EMS, parent, family, police, friend...)? What history was obtained from this source @ -No Did you review nursing and triage notes (agree or disagree)? Why? @ -I reviewed and agree with nursing and triage notes Were old charts reviewed (outside hosp., previous admission, EMS record, old EKG, old radiological studies, urgent care reports/EKG's, care home records)? Report findings @ -No old charts were reviewed Differential Diagnosis (chest pain, altered mental status, abdominal pain women, abdominal pain men, vaginal bleeding, weakness, fever, dyspnea, syncope, headache, dizziness, GI bleed, back pain, seizure, CVA, palpatations, mental health, musculoskeletal)? @ -Differential Musculoskeletal Muscular strain, contusion, ligament sprain, fracture, arthritis, septic arthritis, bursitis, cellulitis, muscle spasm, nerve compression, DVT, arterial occlusion, herpes zoster, electrolyte abnormality, tumor.... This is not meant to be in all inclusive list EKG interpreted by me (3pts min.). @ -none X-rays interpreted by me (1pt min.). @ -None done CT interpreted by me (1pt min.). @ -None done U/S interpreted by me (1pt. min.). @ -None done What testing was considered but not performed or refused? (CT, X-rays, U/S, labs)? Why? @ -None What meds were considered but not given or refused? Why? @ -None Did you discuss the management of the patient with other professionals (professionals i.e. , PA, MERCHANDISE ADJUSTMENT CLERK, lab, RT, psych nurse, social services technician, sheet metal installer, teacher, tactical deception plans officer, heel caser)? Give summary @ -No Was smoking cessation discussed for >3mins.? @ -No Was critical care preformed (if so, how long)? @ -No Were there social determinants of health that impacted care today? How? (Homelessness, low income, unemployed, alcoholism, drug addiction, transportation, low edu. Level, literacy, decrease access to med. care, long-term, rehab)? @ -No Was there de-escalation of care discussed even if they declined (Discuss DNR or withdrawal of care, Hospice)? DNR status @ -No What co-morbidities impacted this encounter? (DM, HTN, Smoking, COPD, CAD, Cancer, CVA, ARF, Chemo, Hep., AIDS, mental health diagnosis, sleep apnea, morbid obesity)? @ -None Was patient admitted / discharged? Hospital course, mention meds given and route, prescriptions, significant lab abnormalities, going to OR and other pertinent info. @ -Discharged. 53-year-old female with chief complaint of right wrist pain. Patient was given IM Toradol for pain relief in the emergency department. Right hand, wrist, and forearm x-ray reveals subtle fracture of the distal radius. Patient placed in short arm cast and wrapped with Siddharht wrap. Patient discharged with Motrin for pain relief. Patient given follow-up referral to orthopedic hand specialist for further evaluation. Undiagnosed new problem with uncertain prognosis? @ -No Drug Therapy requiring intensive monitoring for toxicity (Heparin, Nitro, Insulin, Cardizem)? @ -No Were any procedures done? @ -No Diagnosis/symptom? @ -Radius fracture Acute, or Chronic, or Acute on Chronic? @ -acute Uncomplicated (without systemic symptoms) or Complicated (systemic symptoms)? @ -Uncomplicated Side effects of treatment? @ -No Exacerbation, Progression, or Severe Exacerbation? @ -No Poses a threat to life or bodily function? How? (Chest pain, [place], [place], pneumonia, PE, COPD, DKA, ARF, appy, cholecystitis, CVA, Diverticulitis, Homicidal, Suicidal, threat to staff... and all critical care pts) @ -No Disposition Clinical Impression: Radius distal fracture Narrative: Turn to the emergency department if any worsening or new symptoms. Patient to follow-up outpatient with hand specialist for further intervention. Disposition: HOME SELF-CARE Condition: Good Instructions (If sedation given, give patient instructions): Arm Fracture in Adults (ED) Prescriptions: Ibuprofen [Motrin] 600 mg PO Q8HR PRN #30 tab PRN Reason: Pain Is patient prescribed a controlled substance at d/c from ED?: No Referrals: Kristy Flowers DO [Primary Care Provider] - 1-2 days Karsten Powers DO [Doctor of Osteopathic Medicine] - 1-2 days
[2024-01-03 10:12] VITALS: TEMP 97.8
[2024-01-03] MEDS: KETOROLAC 15 MG/ML 1 ML VIAL IM STA (10:13)
--- NOTE | 2024-01-03 10:55 | XR ---
EXAMINATION TYPE: XR forearm RT DATE OF EXAM: 01/03/2024 COMPARISON: NONE HISTORY: Pain Two views of the forearm demonstrate that the osseous structures appear to be intact and the joint sp aces appear to be preserved. There is no acute fracture or dislocation. Diffuse osteopenia. Questio n linear lucency in the articular surface of the distal radius and recommend CT scanning of the wrist . IMPRESSION: 1. Question of distal radial fracture
--- NOTE | 2024-01-03 10:58 | XR ---
EXAMINATION TYPE: XR wrist complete RT DATE OF EXAM: 01/03/2024 COMPARISON: NONE HISTORY: Pain TECHNIQUE: Four views submitted. FINDINGS: The questionable intra-articular lucency of the distal radius. Diffuse osteopenia. Question previous trauma the fifth metatarsal carpal bone bases. Mild first MCP joint narrowing. IMPRESSION: 1. Question of a subtle intra-articular fracture distal radius and recommend correlation with CT scan of the wrist.
--- NOTE | 2024-01-03 11:00 | XR ---
EXAMINATION TYPE: XR hand complete RT DATE OF EXAM: 01/03/2024 COMPARISON: NONE HISTORY: Pain TECHNIQUE: Three views are submitted. FINDINGS: The questionable intra-articular lucency of the distal radius. Diffuse osteopenia. Question previous trauma the fifth metatarsal carpal bone bases. Mild first MCP joint narrowing. IMPRESSION: 1. Question of a subtle intra-articular fracture distal radius and recommend correlation with CT scan of the wrist.
[2024-01-03 11:56] VITALS: BP 133/84; PULSE 67; RESP 1
== END 2024-01-03 11:45 | disposition home or self-care (01) ==
LOC: EC 09:55
DX: S52.501A Unspecified fracture of the lower end of right radius, initial encounter for closed fracture (principal); F17.200 Nicotine dependence, unspecified, uncomplicated; W19.XXXA Unspecified fall, initial encounter
CPT/HCPCS: 73090; 73110; 73130; 99283; 96372; J1885

== ENCOUNTER 2025-05-15 03:58 | Emergency (ER) | payer BC, OTHER ==
[2025-05-15 04:08] VITALS: RESP 18
--- NOTE | 2025-05-15 04:45 | ED ---
General Adult HPI - General Chief complaint: Back Pain/Injury Stated complaint: Back Pain Time Seen by Provider: 05/15/25 04:24 Source: patient, RN notes reviewed, old records reviewed Mode of arrival: ambulatory Limitations: no limitations - History of Present Illness Initial comments: 55-year-old female presenting for evaluation of left-sided back pain. Patient states she was getting out of the shower and twisted wrong having pain in the left side of the back. No loss of bowel or bladder function. This occurred just prior to arrival. The patient has had similar episode in the past. She did not take any medication prior to arrival. - Related Data Home Medications Medication Instructions Recorded Confirmed Acetaminophen Tab [Tylenol] 1,000 mg PO BID 09/22/21 09/22/21 Baclofen [Lioresal] 10 mg PO TID PRN 09/22/21 09/22/21 Diclofenac Sodium [Voltaren] 75 mg PO BID 09/22/21 09/22/21 Gabapentin [Neurontin] 300 mg PO BID 09/22/21 09/22/21 Meloxicam 7.5 mg PO DAILY 09/22/21 09/22/21 Sertraline [Zoloft] 100 mg PO DAILY 09/22/21 09/22/21 Previous Rx's Medication Instructions Recorded Amoxic-Pot Clav 875-125Mg 1 tab PO BID 1 Days #10 tab 09/28/21 [Augmentin 875-125] Ascorbic Acid [Vitamin C] 500 mg PO DAILY tab 09/28/21 Aspirin EC [Ecotrin Low Dose] 81 mg PO DAILY #60 tab 09/28/21 Cholecalciferol [Vitamin D3 (125 125 mcg PO DAILY tablet 09/28/21 Mcg = 5000 Iu)] Pantoprazole [Protonix] 40 mg PO AC-BRKFST #30 tab 09/28/21 Zinc Sulfate [Orazinc] 220 mg PO DAILY #30 cap 09/28/21 dexAMETHasone ORAL [Hexadrol] See Taper PO DAILY #18 tablet 09/28/21 guaiFENesin-Coden 100-10MG/5ML 10 ml PO Q6HR #60 ml 09/28/21 [Robitussin AC] HYDROcodone/APAP 5-325MG [[place] 1 tab PO Q6HR PRN 3 Days #12 tab 11/13/22 5-325] Ibuprofen [Motrin] 800 mg PO Q8HR PRN #30 tab 02/03/23 Lidocaine 5% Patch [Lidoderm] 1 patch TOPICAL DAILY PRN #7 patch 02/03/23 predniSONE 50 mg PO DAILY #5 tab 02/03/23 Ibuprofen [Motrin] 600 mg PO Q8HR PRN #30 tab 01/03/24 Ibuprofen [Motrin] 600 mg PO Q8HR PRN #24 tab 05/15/25 Allergies Allergy/AdvReac Type Severity Reaction Status Date / Time No Known Allergies Allergy Verified 05/15/25 04:08 Review of Systems ROS Statement: Those systems with pertinent positive or pertinent negative responses have been documented in the HPI. ROS Other: All systems not noted in ROS Statement are negative. Past Medical History Past Medical History: No Reported History Additional Past Medical History / Comment(s): migraine, back pain History of Any Multi-Drug Resistant Organisms: None Reported Past Surgical History: Cholecystectomy, Hernia Repair Past Anesthesia/Blood Transfusion Reactions: No Reported Reaction Past Psychological History: Anxiety, Depression Smoking Status: Current some day smoker Past Alcohol Use History: None Reported Past Drug Use History: None Reported General Exam Limitations: no limitations General appearance: alert, in no apparent distress Head exam: Present: atraumatic, normocephalic Eye exam: Present: normal appearance, PERRL ENT exam: Present: normal exam Neck exam: Present: normal inspection. Absent: tenderness, meningismus Respiratory exam: Present: normal lung sounds bilaterally. Absent: respiratory distress, wheezes Cardiovascular Exam: Present: regular rate, normal rhythm GI/Abdominal exam: Present: soft. Absent: distended, tenderness, guarding Extremities exam: Present: normal inspection, normal capillary refill Back exam: Present: paraspinal tenderness Neurological exam: Present: alert, oriented X3, CN II-XII intact. Absent: motor sensory deficit Psychiatric exam: Present: normal affect, normal mood Skin exam: Present: warm, dry, intact. Absent: cyanosis, diaphoretic Course Vital Signs 05/15/25 04:06 Temperature 98 F Pulse Rate 70 Respiratory 18 Rate Blood Pressure 160/110 O2 Sat by Pulse 100 Oximetry Medical Decision Making - Medical Decision Making Was pt. sent in by a medical professional or institution (, PA, BELT PRESS OPERATOR, urgent care, hospital, or usp...) When possible be specific @ -No Did you speak to anyone other than the patient for history (EMS, parent, family, police, friend...)? What history was obtained from this source @ -No Did you review nursing and triage notes (agree or disagree)? Why? @ -I reviewed and agree with nursing and triage notes Were old charts reviewed (outside hosp., previous admission, EMS record, old EKG, old radiological studies, urgent care reports/EKG's, usp records)? Report findings @ -No old charts were reviewed Differential Back Pain: Strain, zoster, cauda equina syndrome, epidural abscess, vertebral osteomyelitis, discitis, fracture, subluxation, disc herniation, DJD, spinal stenosis, dissection, AAA, pancreatitis, peptic ulcer disease, pyelonephritis, kidney stone, this is not meant to be an all-inclusive list. EKG interpreted by me (3pts min.). @ -As above X-rays interpreted by me (1pt min.). @ -None done CT interpreted by me (1pt min.). @ -None done U/S interpreted by me (1pt. min.). @ -None done What testing was considered but not performed or refused? (CT, X-rays, U/S, labs)? Why? @ -None What meds were considered but not given or refused? Why? @ -None Did you discuss the management of the patient with other professionals (professionals i.e. , PA, BELT PRESS OPERATOR, lab, RT, psych nurse, sr. social media & mobile manager, intelligence senior sergeant, teacher, fire control officer, recycling program manager)? Give summary @ -No Was smoking cessation discussed for >3mins.? @ -No Was critical care preformed (if so, how long)? @ -No Were there social determinants of health that impacted care today? How? (Homelessness, low income, unemployed, alcoholism, drug addiction, trans portation, low edu. Level, literacy, decrease access to med. care, [facility], rehab)? @ -No Was there de-escalation of care discussed even if they declined (Discuss DNR or withdrawal of care, Hospice)? DNR status @ -No What co-morbidities impacted this encounter? (DM, HTN, Smoking, COPD, CAD, Cancer, CVA, ARF, Chemo, Hep., AIDS, mental health diagnosis, sleep apnea, morbid obesity)? @ -None Was patient admitted / discharged? Hospital course, mention meds given and route, prescriptions, significant lab abnormalities, going to OR and other pertinent info. @ -[55-year-old female with left-sided low back pain after twisting. No red flag symptoms. Patient had not taken any medication prior to arrival. She is given a shot of Toradol in the emergency department. She is instructed to rest, take anti-inflammatories and follow closely with her primary care provider. Undiagnosed new problem with uncertain prognosis? @ -No Drug Therapy requiring intensive monitoring for toxicity (Heparin, Nitro, Insulin, Cardizem)? @ -No Were any procedures done? @ -No Diagnosis/symptom? @ -Acute low back pain Acute, or Chronic, or Acute on Chronic? @ -Acute Uncomplicated (without systemic symptoms) or Complicated (systemic symptoms)? @ -Default Side effects of treatment? @ -No Exacerbation, Progression, or Severe Exacerbation? @ -No Poses a threat to life or bodily function? How? (Chest pain, [place], [place], pneumonia, PE, COPD, DKA, ARF, appy, cholecystitis, CVA, Diverticulitis, Homicidal, Suicidal, threat to staff... and all critical care pts) @ -No Disposition Clinical Impression: Mechanical back pain Disposition: HOME SELF-CARE Condition: Good Instructions (If sedation given, give patient instructions): Acute Low Back Pain (ED) Prescriptions: Ibuprofen [Motrin] 600 mg PO Q8HR PRN #24 tab PRN Reason: Pain Is patient prescribed a controlled substance at d/c from ED?: No Referrals: Kristy Flowers DO [Primary Care Provider] - 1-2 days Time of Disposition: 04:44
[2025-05-15] MEDS: KETOROLAC 15 MG/ML 1 ML VIAL IM STA (04:54)
[2025-05-15 05:02] VITALS: BP 155/91; PULSE 87; TEMP 98.1
== END 2025-05-15 05:02 | disposition home or self-care (01) ==
LOC: EC 03:58
DX: M54.50 Low back pain, unspecified (principal); F17.200 Nicotine dependence, unspecified, uncomplicated
CPT/HCPCS: 99283; 96372; J1885